=== PATIENT | female | born 1945 | race Caucasian/White ===

== ENCOUNTER 2024-07-23 12:04 | Inpatient (IN) ==
--- NOTE | 2024-07-23 12:17 | Emergency Department Note ---
Impression & Plan Lactic acidosis, Elevated troponin, Leukocytosis, Elevated transaminase level, Thrombocytopenia ED Provider Note NAME: DOROTHY AGUILAR AGE: 79 SEX: F : 1945 ARRIVES VIA: Ambulance INFORMANT: Patient, ED PROVIDER(S): Garrison Pennington MD CHIEF COMPLAINT: Weakness, fatigue, body aches MEDICAL DECISION MAKING: Patient presents due to concern for weakness fatigue tachycardia and bodyaches. IV was established and blood work was obtained. Patient does not complain of any significant symptoms at this time other than the weakness and fatigue. Patient was without chest pain or shortness of breath. Patient is undergoing chemotherapy treatment which also may be contributory. Patient was ordered IV fluids. White count of 13 with a hemoglobin 11.8. Thrombocytopenia at 43. The patient had reported she has had some occasional nosebleeds the last several days but not actively bleeding on exam. Kidney function is unremarkable. The patient does have slight anion gap and lower bicarb. Troponin is 16.8. Possible slight ST depressions in the lateral leads but no active chest pain or shortness of breath. Likely demand. I did consider PE but the patient does not complain of any chest pains or shortness of breath and there is no asymmetrical extra swelling in the lower extremities. BioFire negative. Lead with a negative bio fire patient was ordered Pro-Nnamdi cultures lactate and was ordered empiric IV Rocephin. Patient does report that she is prone to UTIs. Initial lactate of 3.3. Repeat after fluids is 1.1. Patient was feeling improved. I did speak the on-call hospitalist Dr. Ken and the patient was admitted to medicine service. Discussion w/ other healthcare providers: Dr. Ken inpatient medicine service Prior /Outside records reviewed: I reviewed part of a general surgery visit from April 27, [address] Madalyn Higgins. Patient did have a port insertion due to concerns for primary myxofibrosarcoma. 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 Differential diagnosis: Infection, dehydration, metabolic abnormality, hypo/hyperglycemia, electrolyte imbalance, anemia, UTI, pneumonia, thyroid dysfunction among others were considered. Diagnostics, as interpreted by me: ECG: Sinus tachycardia, rate 121, prolonged QTc, normal axis no obvious STEMI. Possible depressions in the lateral leads. Rate is higher. ST depressions are new from comparison from April 08, 2024. Cardiac monitoring: An order was placed for continuous cardiac monitoring. The monitor shows a rate of 114 with tachycardic and regular rhythm. Patient was placed on pulse oximetry Medical decision rules: None Imaging studies: I informally interpreted the patient's Chest x-ray does not show obvious pneumonia or pneumothorax port noted in left chest with formal report to follow. HPI: Patient presents due to concern for worsening weakness fatigue and lethargy. The patient states that this been an ongoing issue. Patient reports that he does have a history of sarcoma which unfortunate is not amenable to initial chemo treatment back in the fall but was really started on an adjunct medication which she received last Friday. The patient states that this week she has felt more weak and fatigued and has felt cold all the time. No reported fevers. Patient states that she has had decreased p.o. intake and does complain of some nausea. No vomiting. Patient reports that she has had some body aches like "she had the flu." Patient denies any known sick contacts or recent travel. The patient was told that she might have some of the symptoms when she receives the chemo. Patient denies any current cough no abdominal pain no chest pain or shortness of breath. Patient does have some mild chronic leg swelling which is not new. PAST MEDICAL HISTORY: See Below PAST SURGICAL HISTORY: See Below SOCIAL HISTORY: See Below HOME MEDICATIONS: See Below ALLERGIES: See Below VITALS: See Below PHYSICAL EXAMINATION: GENERAL: NAD, non-toxic. Wearing glasses. EYE EXAM: Normal conjunctiva. PERRL, no anisocoria and EOM's grossly intact w/o pain. OROPHARYNX: Moist mucus membranes, grossly normal dentition. NECK: Trachea midline, no stridor. Supple, no nuchal rigidity, no adenopathy, non-tender. No signs of meningismus. FROM of the neck with good chin to chest and neck extension. LUNGS: Clear to auscultation. Normal chest wall mechanics. HEART: Tachycardic and regular, no MRG. ABDOMEN: Abdomen soft, non-tender, no masses, no rebound or guarding. BACK: No CVA TTP. SKIN: No rashes and no bruising. UPPER EXTREMITIES: Upper extremities are grossly normal. LOWER EXTREMITIES: Grossly normal, trace pretibial edema without calf pain or erythema. NEURO EXAM: A&O x3, cranial nerves II-XII grossly intact, normal speech, moves all 4 extremities. Past Med/Surg History Problem List (Updated 07/24/24 @ 09:56 by Garrison Pennington MD) Thrombocytopenia (Acute) Elevated transaminase level (Acute) Lactic acidosis (Acute) Leukocytosis (Acute) Elevated troponin (Acute) SIRS (systemic inflammatory response syndrome) ILD (interstitial lung disease) Allergic rhinitis with postnasal drip Chronic cough Upper airway cough syndrome Multiple pulmonary nodules Lymphedema Primary myxofibrosarcoma (Chronic) Mass of left thigh Encounter for pre-operative examination Medical History Osteopenia Upper airway cough syndrome Primary myxofibrosarcoma dx spring 2022, left thigh; has mets to lung, one nodule in left lobe and 2 more nodules now in site of previously removed sarcomas; has also had 5 rounds of xrt (july-september 2022, total 5 weeks of treatments) Multiple pulmonary nodules CARLA nodule was bx and proven metastatic sarcoma Lymphedema ILD (interstitial lung disease) 'ILD/pulmonary fibrosis' per pulm note 01/22/24: 'increased reticular markings on the periphery of bilateral lower lobes with early honeycombing. No traction bronchiectasis', autoimmune workup ordered and was negative; per 03/15/24 note: 'Given that the patient's functional status is good, I do not think there is the need to start any antifibrotic's right now. Will keep a close eye on TLC as well as DLCO and if there is any significant decline in them then Ofev or Esbriet could be thought of. This was relayed to the patient and she is agreeable with the plan" Chronic cough Allergic rhinitis with postnasal drip History of uterine fibroid no sx needed Osteoarthritis Migraine hx, no pain more visual disturbance/flashes of light Hyperlipidemia Surgical History Port-A-Cath in place (04/12/24) Insertion Access Port to Left Subclavian with Fluoroscopy(Left) - Reyes Moeller DO History of surgery 12/04/22 and 04/17/23, [facility], myxofibrosarcoma removed in left thigh muscle; 2 new nodules have now formed in same the spot Hx of cataract extraction right/left History of cholecystectomy [place] teeth removed H/O eye surgery RT/LEFT CORNEA "SCRAPING" SURGERY Family History Sister Breast cancer Cancer Pancreatic Other No family history of adverse response to anesthesia Social History Smoking Status: Never smoker Second Hand Exposure: Yes (hx); Do You Dip or Chew Tobacco: No; Hx Alcohol Use: Yes Alcohol type: wine Alcohol Intake Frequency: Monthly or Less Hx Substance Use: No Preferred Language: Latvian Communication Ability: Effective Visual Impairment: Partially Limited Hearing Ability: Normal Human Resources Designate Required: No Beliefs That Will Affect Care: Worship marital status: Current Living Situation: Alone current occupational status: retired How many Children do You have: 1 Feels Safe at Home: Yes Safety Concerns: Feels Safe At This Time Diet: regular during the past year weight has: increased > 10 lbs Assistive Devices: Glasses Allergies Allergies Allergy/AdvReac Type Severity Reaction Status Date / Time No Known Allergies Allergy Unknown Verified 04/27/24 10:53 Home Meds Home Medications Medication Instructions Recorded Confirmed fenofibrate nanocrystallized 145 145 mg PO QPM 05/14/22 07/23/24 mg tablet multivitamin 1 tab PO QAM 05/14/22 07/23/24 ibuprofen 200 mg tablet (Advil) 200 mg PO Q6H PRN Pain 10/07/22 07/23/24 iron bisglycinate chelate 28 mg PO QAM 05/20/23 07/23/24 lactobacillus combination no.9 4 4,000 mmu cells PO QAM 05/20/23 07/23/24 billion cell capsule (Adult 50 Plus Probiotic) cholecalciferol (vitamin D3) 25 25 mcg PO QAM 11/20/23 07/23/24 mcg (1,000 unit) capsule cranberry concentrate-ascorbic 1 cap PO BID 03/16/24 07/23/24 acid 4,200 mg-20 mg capsule prochlorperazine maleate 10 mg 5 mg PO Q6H PRN Nausea And Vomiting 04/27/24 07/23/24 tablet acetaminophen 325 mg tablet 650 mg PO QID PRN Pain/Fever 07/23/24 07/23/24 dexamethasone 4 mg tablet 8 mg PO UD 07/23/24 07/23/24 olanzapine 2.5 mg tablet 2.5 mg PO UD 07/23/24 07/23/24 Results & Data (ED) Vital Signs Vital Signs - 24 hr 07/23/24 11:54 07/23/24 12:12 07/23/24 12:14 Temperature 36.6 C Temperature Source Oral Pulse Rate 122 H 132 H 128 H Pulse Rate from SpO2 Sensor 132 H Respiratory Rate 20 24 Blood Pressure 122/83 122/83 Blood Pressure Mean 96 96 Pulse Oximetry 97 97 Oxygen Delivery Method Sepsis Recent Fever Within 48 Hours No Sepsis New/Unexplained Change in Mental Status No Sepsis Action Taken by Nursing No Action Required 07/23/24 12:35 07/23/24 13:15 07/23/24 14:06 Temperature Temperature Source Pulse Rate 120 H 95 H Pulse Rate from SpO2 Sensor Respiratory Rate 22 18 Blood Pressure Blood Pressure Mean Pulse Oximetry Oxygen Delivery Method Room Air Sepsis Recent Fever Within 48 Hours Sepsis New/Unexplained Change in Mental Status Sepsis Action Taken by Nursing 07/23/24 15:03 07/23/24 16:06 07/23/24 16:10 Temperature Temperature Source Pulse Rate 98 H 107 H 102 H Pulse Rate from SpO2 Sensor Respiratory Rate 20 19 Blood Pressure Blood Pressure Mean Pulse Oximetry Oxygen Delivery Method Sepsis Recent Fever Within 48 Hours Sepsis New/Unexplained Change in Mental Status Sepsis Action Taken by Residential Medications Current Medication List: was personally reviewed by me Laboratory Data Attestation: I reviewed the patient's lab results. 07/24/24 05:22 07/24/24 05:22 Lab Results 07/23/24 07/23/24 07/23/24 Range/Units 12:31 13:10 14:28 WBC 13.31 H (4.8-10.8) K/ul RBC 3.82 L (4.20-5.40) M/uL Hgb 11.8 L (12.0-16.0) g/dl Hct 34.6 L (37.0-47.0) % MCV 90.6 (80.0-100.0) fL MCH 30.9 (25.0-34.0) pg MCHC 34.1 (32.0-36.0) g/dL RDW Std Deviation 48.9 H (36.4-46.3) fL RDW Coeff of Shavon 15.3 H (11.5-14.5) % Plt Count 43 L (130-400) K/uL MPV 11.4 (9.4-12.4) fL Absolute Nucleated RBC 0.20 H (0.00-0.12) K/uL Nucleated RBC % (auto) 1.5 % Neutrophils % (Manual) 49 % Lymphocytes % (Manual) 16 % Reactive Lymphs % (Man) 23 % Monocytes % (Manual) 7 % Basophils % (Manual) 2 % Metamyelocytes % (Man) 3 % Neutrophils # (Manual) 6.52 H (1.40-6.50) K/uL Total Absolute Neuts 6.52 H (1.4-6.5) K/uL Lymphocytes # (Manual) 2.13 (1.2-3.4) K/uL Reactive Lymphs # 3.06 K/uL Total Abs Lymphocytes 5.19 H (1.2-3.4) K/uL Monocytes # (Manual) 0.93 H (0.11-0.59) K/uL Basophils # (Manual) 0.27 H (0-0.2) K/uL Metamyelocytes # (Man) 0.40 H (0-0) K/uL Toxic Granulation 2+ Dohle Bodies 1+ PT 11.2 (9.0-12.0) Seconds INR 1.0 (0.9-1.1) Sodium 139 (136-145) mmol/L Potassium 3.3 L (3.5-5.1) mmol/L Chloride 105 (98-107) mmol/L Carbon Dioxide 19 L (21-32) mmol/L Anion Gap 15 H (3-11) BUN 19 (6-23) mg/dl Creatinine 1.04 (0.6-1.2) mg/dl Est Cr Clr Drug Dosing 41.9 ml/min eGFR 54.33 BUN/Creatinine Ratio 18.3 (10-20) Glucose 137 H (70-99(Fasting)) mg/dl Lactate 3.3 H* (0.4-2.0) mmol/L Calcium 9.6 (8.6-10.3) mg/dl Magnesium 1.8 (1.7-2.4) mg/dl Total Bilirubin 0.4 (0.2-1.0) mg/dl AST 90 H (13-39) U/L ALT 179 H (7-52) U/L Alkaline Phosphatase 110 H (34-104) U/L Total Creatine Kinase 30 (26-192) U/L Troponin I High Sens 60.8 H* (0-14) pg/ml Total Protein 7.2 (6.0-8.3) gm/dl Albumin 4.2 (3.4-5.0) gm/dl Globulin 3.0 (2.5-4.0) gm/dl Albumin/Globulin Ratio 1.4 (0.9-2) Procalcitonin 0.30 (0-0.5) ng/ml TSH 5.258 H (0.300-4.500) uIu/ml Free T4 1.17 (0.61-1.60) ng/dl Adenovirus (PCR) Not Detected (NotDetected) B. pertussis DNA (PCR) Not Detected (NotDetected) B.parapertussis DNA PCR Not Detected (NotDetected) C. pneumoniae DNA (PCR) Not Detected (NotDetected) Coronavirus OC43 (PCR) Not Detected (NotDetected) Coronavirus HKU1 (PCR) Not Detected (NotDetected) Coronavirus 229E (PCR) Not Detected (NotDetected) SARS-CoV-2 (PCR) Not Detected (NotDetected) Coronavirus NL63 (PCR) Not Detected (NotDetected) Human Metapneumovir PCR Not Detected (NotDetected) Influenza Type A (PCR) Not Detected (NotDetected) Influenza Type B (PCR) Not Detected (NotDetected) M. pneumoniae (PCR) Not Detected (NotDetected) Parainfluenza 1 (PCR) Not Detected (NotDetected) Parainfluenza 2 (PCR) Not Detected (NotDetected) Parainfluenza 3 (PCR) Not Detected (NotDetected) Parainfluenza 4 (PCR) Not Detected (NotDetected) RSV (PCR) Not Detected (NotDetected) Entero/Rhino (PCR) Not Detected (NotDetected) 07/23/24 07/23/24 Range/Units 14:58 16:16 WBC (4.8-10.8) K/ul RBC (4.20-5.40) M/uL Hgb (12.0-16.0) g/dl Hct (37.0-47.0) % MCV (80.0-100.0) fL MCH (25.0-34.0) pg MCHC (32.0-36.0) g/dL RDW Std Deviation (36.4-46.3) fL RDW Coeff of Shavon (11.5-14.5) % Plt Count (130-400) K/uL MPV (9.4-12.4) fL Absolute Nucleated RBC (0.00-0.12) K/uL Nucleated RBC % (auto) % Neutrophils % (Manual) % Lymphocytes % (Manual) % Reactive Lymphs % (Man) % Monocytes % (Manual) % Basophils % (Manual) % Metamyelocytes % (Man) % Neutrophils # (Manual) (1.40-6.50) K/uL Total Absolute Neuts (1.4-6.5) K/uL Lymphocytes # (Manual) (1.2-3.4) K/uL Reactive Lymphs # K/uL Total Abs Lymphocytes (1.2-3.4) K/uL Monocytes # (Manual) (0.11-0.59) K/uL Basophils # (Manual) (0-0.2) K/uL Metamyelocytes # (Man) (0-0) K/uL Toxic Granulation Dohle Bodies PT (9.0-12.0) Seconds INR (0.9-1.1) Sodium (136-145) mmol/L Potassium (3.5-5.1) mmol/L Chloride (98-107) mmol/L Carbon Dioxide (21-32) mmol/L Anion Gap (3-11) BUN (6-23) mg/dl Creatinine (0.6-1.2) mg/dl Est Cr Clr Drug Dosing ml/min eGFR BUN/Creatinine Ratio (10-20) Glucose (70-99(Fasting)) mg/dl Lactate 1.1 (0.4-2.0) mmol/L Calcium (8.6-10.3) mg/dl Magnesium (1.7-2.4) mg/dl Total Bilirubin (0.2-1.0) mg/dl AST (13-39) U/L ALT (7-52) U/L Alkaline Phosphatase (34-104) U/L Total Creatine Kinase (26-192) U/L Troponin I High Sens 81.6 H* D (0-14) pg/ml Total Protein (6.0-8.3) gm/dl Albumin (3.4-5.0) gm/dl Globulin (2.5-4.0) gm/dl Albumin/Globulin Ratio (0.9-2) Procalcitonin (0-0.5) ng/ml TSH (0.300-4.500) uIu/ml Free T4 (0.61-1.60) ng/dl Adenovirus (PCR) (NotDetected) B. pertussis DNA (PCR) (NotDetected) B.parapertussis DNA PCR (NotDetected) C. pneumoniae DNA (PCR) (NotDetected) Coronavirus OC43 (PCR) (NotDetected) Coronavirus HKU1 (PCR) (NotDetected) Coronavirus 229E (PCR) (NotDetected) SARS-CoV-2 (PCR) (NotDetected) Coronavirus NL63 (PCR) (NotDetected) Human Metapneumovir PCR (NotDetected) Influenza Type A (PCR) (NotDetected) Influenza Type B (PCR) (NotDetected) M. pneumoniae (PCR) (NotDetected) Parainfluenza 1 (PCR) (NotDetected) Parainfluenza 2 (PCR) (NotDetected) Parainfluenza 3 (PCR) (NotDetected) Parainfluenza 4 (PCR) (NotDetected) RSV (PCR) (NotDetected) Entero/Rhino (PCR) (NotDetected) Administered Medications Fenofibrate (Fenofibrate Nanocrystallized 145 Mg Tablet) 145 mg PO QPM NITO Stop: 08/22/24 20:59 Last Admin: 07/23/24 22:06 Dose: 145 mg Documented By: STEFANY Multivitamins (Multivitamin Tab) 1 tab PO QAM NITO Stop: 08/23/24 08:59 Last Admin: 07/24/24 09:25 Dose: 1 tab Documented By: KATYO Discontinued Medications Sodium Chloride (Nss) 1,000 mls @ 999 mls/hr IV .Q1H1M ONE Stop: 07/23/24 13:35 Last Infusion: 07/23/24 18:52 Dose: Infused Documented By: Admin: 07/23/24 13:09 Dose: 999 mls/hr Documented By: JOSR Ceftriaxone Sodium (Rocephin) 2,000 mg in 50 mls @ 100 mls/hr IV NOW STA Stop: 07/23/24 14:43 Last Infusion: 07/23/24 18:52 Dose: Infused Documented By: Admin: 07/23/24 15:06 Dose: 100 mls/hr Documented By: ARS Sodium Chloride (Nss) 1,000 mls @ 999 mls/hr IV .Q1H1M ONE Stop: 07/23/24 15:14 Last Infusion: 07/23/24 18:52 Dose: Infused Documented By: Admin: 07/23/24 14:27 Dose: 999 mls/hr Documented By: JOSR Pantoprazole Sodium (Protonix) 40 mg in 10 mls @ 5 mls/min IV NOW ONE Stop: 07/23/24 16:05 Last Admin: 07/23/24 18:33 Dose: 5 mls/min Documented By: JOSR Lactated Ringer's (Lr) 1,000 mls @ 150 mls/hr IV .Q6H40M NITO Stop: 07/24/24 09:49 Last Admin: 07/24/24 03:36 Dose: 150 mls/hr Documented By: Infusion: 07/24/24 03:36 Dose: Infused Documented By: Admin: 07/23/24 20:31 Dose: 150 mls/hr Documented By: STEFANY Ondansetron HCl (Ondansetron Inj 2 Mg/Ml 2 Ml Vial) 4 mg IV NOW STA Stop: 07/23/24 12:36 Last Admin: 07/23/24 13:08 Dose: 4 mg Documented By: JOSR Pantoprazole Sodium (Pantoprazole 40 Mg/10 Ml Ivp) Confirm Administered Dose 40 mg IV .STK-MED ONE Stop: 07/23/24 18:29 Last Admin: 07/23/24 18:33 Dose: Not Given Documented By: JOSR Imaging Data Radiologist's Impression: Chest X-Ray 07/23/24 12:35 XR chest 1V portable CLINICAL HISTORY: weakness COMPARISON STUDY: Chest radiograph April 12, 2024. Chest CT June 30, 2024. FINDINGS: A left subclavian [id number]-[id number] is in place. Lung volumes are normal. Lungs are clear. There is no pneumothorax or pleural effusion. Cardiac size is normal. Mediastinal contours are normal. There is no evidence for pulmonary edema. IMPRESSION: No acute cardiopulmonary findings. No change in appearance of the chest. ACT 112: Negative or not required by law. Electronically signed by: Jeramie Sage M.D. 07/23/2024 1:38 PM Discharge Plan Visit Data Chief Complaint: Weakness Stated Complaint: WEAKNESS ED Provider: Garrison Pennington Discharge Problem: Lactic acidosis, Elevated troponin, Leukocytosis, Elevated transaminase level, Thrombocytopenia Patient Disposition: Admitted As Inpatient Discharge Instructions Interventions: ED Discharge Assessment Last Done: 07/23/24 18:56 Discharge Problem: Leukocytosis Qualifiers: Leukocytosis type: unspecified Qualified Code(s): D72.829 - Elevated white blood cell count, unspecified
[2024-07-23] MEDS: ONDANSETRON INJ 2 MG/ML 2 ML VIAL IV STA (13:08)
[2024-07-23] MEDS: SODIUM CHLORIDE 0.9% 1,000 ML IV ONE ×2 (13:09→14:27)
[2024-07-23 13:13] LABS: Albumin Globulin Ratio 1.4 (0.9-2); Albumin Level 4.2 gm/dl (3.4-5.0); BUN Creatinine Ratio 18.3 (10-20); Bilirubin,Total 0.4 mg/dl (0.2-1.0); Calcium 9.6 mg/dl (8.6-10.3); Creatinine Clr Calc Pharmacy 41.9 ml/min; Magnesium 1.8 mg/dl (1.7-2.4); Potassium 3.3 mmol/L (3.5-5.1); Total Protein 7.2 gm/dl (6.0-8.3)
[2024-07-23 13:17] LABS: Prothrombin Time 11.2 Seconds (9.0-12.0)
[2024-07-23 13:24] LABS: Troponin I High Sensitivity 60.8 pg/ml (0-14)
[2024-07-23 13:25] LABS: Hematocrit (blood only) 34.6 % (37.0-47.0); Hemoglobin 11.8 g/dl (12.0-16.0); Mean Corpuscular Hemoglobin 30.9 pg (25.0-34.0); Mean Corpuscular Hgb Conc 34.1 g/dL (32.0-36.0); Mean Corpuscular Volume 90.6 fL (80.0-100.0); Mean Platelet Volume 11.4 fL (9.4-12.4); Nucleated RBC % (auto) 1.5 %; Platelet Count 43 K/uL (130-400); RDW Coefficient of Variation 15.3 % (11.5-14.5); RDW Standard Deviation 48.9 fL (36.4-46.3); Red Blood Count 3.82 M/uL (4.20-5.40); White Blood Count 13.31 K/ul (4.8-10.8)
[2024-07-23 13:28] LABS: Thyroid Stimulating Hormone 5.258 uIu/ml (0.300-4.500)
--- NOTE | 2024-07-23 13:39 | XRay Report ---
XR chest 1V portable CLINICAL HISTORY: weakness COMPARISON STUDY: Chest radiograph April 12, 2024. Chest CT June 30, 2024. FINDINGS: A left subclavian Pvuwas-b-Xjam is in place. Lung volumes are normal. Lungs are clear. Ther e is no pneumothorax or pleural effusion. Cardiac size is normal. Mediastinal contours are normal. Th ere is no evidence for pulmonary edema. IMPRESSION: No acute cardiopulmonary findings. No change in appearance of the chest. ACT 112: Negative or not required by law. Electronically signed by: Jeramie Saeg M.D. 07/23/2024 1:38 PM
[2024-07-23 14:01] LABS: T4 Free Thyroxine 1.17 ng/dl (0.61-1.60)
[2024-07-23 14:04] LABS: Adenovirus PCR Not Detected (NotDetected); Bordetella parapertussis PCR Not Detected (NotDetected); Bordetella pertussis PCR Not Detected (NotDetected); Chlamydia pneumoniae PCR Not Detected (NotDetected); Coronavirus 229E PCR Not Detected (NotDetected); Coronavirus CoV-2 (COVID19)PCR Not Detected (NotDetected); Coronavirus HKU1 PCR Not Detected (NotDetected); Coronavirus NL63 PCR Not Detected (NotDetected); Coronavirus OC43PCR Not Detected (NotDetected); Human Metapneumovirus PCR Not Detected (NotDetected); Influenza A PCR Not Detected (NotDetected); Influenza B PCR Not Detected (NotDetected); Mycoplasma pneumoniae PCR Not Detected (NotDetected); Parainfluenza Virus 1 PCR Not Detected (NotDetected); Parainfluenza Virus 2 PCR Not Detected (NotDetected); Parainfluenza Virus 3 PCR Not Detected (NotDetected); Parainfluenza Virus 4 PCR Not Detected (NotDetected); Respiratory Syncytial VirusPCR Not Detected (NotDetected); Rhinovirus/Enterovirus PCR Not Detected (NotDetected)
[2024-07-23 14:18] LABS: ALC (manual) 5.19 K/uL (1.2-3.4); ANC (manual) 6.52 K/uL (1.4-6.5); Basophils # (manual) 0.27 K/uL (0-0.2); Basophils % (manual) 2 %; Dohle Bodies 1+; Lymphocytes # (manual) 2.13 K/uL (1.2-3.4); Lymphocytes % (manual) 16 %; Metamyelocytes % (manual) 3 %; Monocytes # (manual) 0.93 K/uL (0.11-0.59); Monocytes % (manual) 7 %; Neutrophils # (manual) 6.52 K/uL (1.40-6.50); Neutrophils % (manual) 49 %; Reactive Lymphocytes # (manual) 3.06 K/uL; Reactive Lymphocytes % (manual) 23 %; Toxic Granulation 2+
[2024-07-23] MEDS: cefTRIAXone SODIUM 2,000 MG/50 ML BAG IV STA (15:06)
--- OUTSIDE RECORDS SUMMARY | 2024-07-23 16:03 | External Medical Summary | Continuity of Care Document ---
Author Name Unknown Organization [facility] Address [address] [place] [id number] Care Team Providers Care Infant Lead Teacher Name Role Phone Criselda Guzman Primary Care Physician [phone] Encounter [facility] [id number] Date(s): 07/14/24 - 07/14/[address] [phone] Discharge Disposition: Home or Self Care Attending Physician: MD Dc Edward J Referring Physician: MD Dc Edward J Encounter Type: Outpatient Hospital Allergies, Adverse Reactions, Alerts No Known Allergies Medications Claritin Start: 05/10/24 2:36:00 PM EST, 10 mg =, PO, Daily Start Date: 05/10/24 Status: Ordered Repeat number: 1 cranberry oral capsule Start: 03/04/24 9:05:00 AM EDT, 1 capsule, PO, bid Start Date: 03/04/24 Status: Ordered Repeat number: 1 Culturee Digestive Health Start: 04/10/23 12:29:00 PM EST, 1 tab, PO, Daily Start Date: 04/10/23 Status: Ordered Repeat number: 1 fenofibrate 145 mg oral tablet Start: 08/26/22 2:38:00 PM EDT, 1 tab, PO, Daily Start Date: 08/26/22 Status: Ordered Repeat number: 1 iron gluconate Start: 12/19/22 12:45:00 PM EDT, 28 mg =, PO, Daily Start Date: 12/19/22 Status: Ordered Repeat number: 1 multivitamin Start: 04/10/23 12:29:00 PM EST, 1 tab, PO, Daily Start Date: 04/10/23 Status: Ordered Repeat number: 1 prochlorperazine Start: 05/10/24 2:36:00 PM EST, 5 mg =, PO, bid Start Date: 05/10/24 Status: Ordered Repeat number: 1 Tylenol Start: 04/10/23 12:27:00 PM EST, 650 mg =, PO, qid, prn Start Date: 04/10/23 Status: Ordered Repeat number: 1 Vitamin D3 Start: 08/04/23 9:55:00 AM EST, 250 mcg =, PO, Daily Start Date: 08/04/23 Status: Ordered Repeat number: 1 Problem List Condition Confirmation Course Effective Dates Status H ealth Status Informant High cholesterol Confirmed Active 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 OO MR Lower Extremity Consult EXAMINATION: MRI of the left lower extremity performed at [facility] 06/23/2024 CLINICAL HISTORY: C49.9: Malignant neoplasm of connective and soft tissue,; Thigh 2022 sarcoma with recurrence excision 2022; ?new recurrence?? Additional info: Myxofibrosarcoma status post neoadjuvant radiation and resection 2022, recurrence in April 2023 status post reexcision. Now with bilateral biopsy proven recurrence within the leftthigh and lung. COMPARISON: PET/CT 05/10/2024, 02/09/2024 MRI 07/28/2023, 03/13/2023, 07/30/2022 TECHNIQUE: Multiplanar multisequence MRI of the left lower extremity with and without contrast. FINDINGS: Treatment location: Left vastus lateralis. Anticipated post-treatment findings: New, recurrent, or residual disease: Enhancing intrinsically T2 hyperintense lesions within the left lateral thigh abutting the vastus intermedialis, rectus femoris, and vastus lateralis. Masses measure 3.6 x 3.1 cm and 2.7 x 2.6 cm (previously measuring 3.6 x 2.9 cm and 2.5 x 2.5 cm-PET/CT 05/10/2024). No new mass. Adjacent chronic seroma with surrounding enhancing granulation tissue about the lateral aspect of the thigh. No lymphadenopathy. Other: Visualized pelvis is unremarkable. IMPRESSION: 1. Stable size of left lateral thigh masses from PET CT 05/10/2024, increased in size from previous outside MRI examination of January 26, 2024. 2. No new mass/lesion. [place] Act 112: This study does not meet the requirements of [place] Act 112. Dr. Guicho Bergman is the dictating resident. Finalized reports status indicates that the attendinghas reviewed the images and report, and agrees with the interpretation. Preliminary report status should be regarded as NOT interpreted by the attending radiologist. Workstation ID: [id number] Final Dictated by:DO Bergman Matthew Dictated DT/TM:07/15/2024 2:20 Resident:DO Bergman Matthew Signed by:MD Hdez Timothy J Signed (Electronic Signature):07/15/2024 2:19 p Social History Social History Type Response Smoking Status Never smoked cigaret kofi Sex Female Sex Representation Female (finding) Patient Care team information Care Team Personnel Name: DO Guzman Chastity L Position: Referring Member Role: Primary Care Provider Address: [facility] [address] [place] [address] [place] Telecom: [phone] Name: MD Salvador, Lindsey Fischer Position: Physician - Surgery Oncology Member Role: Lifetime Relationship Address: [address] [place] [address] Telecom: [phone] Care Team Related Persons Name: MANUEL DEE Insurance Providers Guarantor name: DOROTHY Conor LAUREN Health Plan Information #: 1 Payer: MEDICARE Member Number: [id number] Policy Number: NA Group Number: NA Health Plan Information #: 2 Payer: [facility] [employer] Member Number: [id number] Policy Number: NA Group Number: [id number]
--- OUTSIDE RECORDS SUMMARY | 2024-07-23 16:04 | External Medical Summary | Continuity of Care Document ---
Author Name Unknown Organization [facility] Address [address] [place] [address] TREV OSORIO [id number] Care Team Providers Care Director Property Name Role Phone Crieslda Guzman Primary Care Physician [phone] Encounter [facility] [id number] Date(s): 07/12/24 - 07/12/24 [facility] [id number], [place] [address]- [phone] Encounter Diagnosis Soft tissue sarcoma(Discharge Diagnosis) - 07/12/24 Discharge Disposition: Home or Self Care Attending Physician: MD Lenz Monali K Referring Physician: DO Guzman Chastity L Encounter Type: [facility] Allergies, Adverse Reactions, Alerts No Known Allergies [...] Date: 08/04/23 Status: Ordered Repeat number: 1 Mental Status 07/12/24 Barriers to Learning one year Vision imp airment, Other: Glasses Mandatory Health Literacy Documentation Yes Health Literacy Communication Barriers N ever Primary Language Luxembourgish Problem List Condition Confirmation Course Effective Dates Status H ealth Status Informant High cholesterol Confirmed Active 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 Diagnosis Diagnosis Type Effective Dates Health Status Cl inical Service Informant Soft tissue sarcoma Discharge Diagnosis 07/12/24 Non-Specified Procedures Procedure Date Related Diagnosis Body Site Status Sarcoma- Left thigh 12/04/22 Compl eted Mammogram 04/17/22 Completed Cholecystectomy 2007 Completed Vital Signs Most recent to oldest [Reference Range]: 1 Height 153 cm (07/12/24 9:21 AM) Patient Weight 69.8 kg (07/12/24 9:21 AM) Body Mass Index 29.82 kg/m2 (07/12/24 9:21 AM) Temperature [36.5-37.9 DegC] 37.1 DegC (07/12/24 9:21 AM) Heart Rate 116 bpm 1 (07/12/24 9:21 AM) Respiratory Rate 18 br/min (07/12/24 9:21 AM) Blood Pressure 128/74mmHg (07/12/24 9:21 AM) Mean Blood Pressure 90 mmHg (07/12/24 9:21 AM) Cuff Pulse Pressure 54 mmHg (07/12/24 9:21 AM) BP Location # 1 Left Arm (07/12/24 9:21 AM) 1Result Comment: provider notified Social History Social History Type Response Smoking Status Never smoked cigaret kofi Sex Female Sex Representation Female (finding) Patient Care team information Care Team Personnel Name: DO Guzman Chastity L Position: Referring Member Role: Primary Care Provider Address: [facility] [address] [place] [address] Telecom: [phone] Name: MD Salvador, Lindsey Fischer Position: Physician - Surgery Oncology Member Role: Lifetime Relationship Address: [address] [place] [address] Telecom: [phone] Care Team Related Persons Name: MANUEL DEE Insurance Providers Guarantor name: DOROTHY AGUILAR Health Plan Information #: 2 Payer: [facility] [employer] Member Number: [id number] Policy Number: NA Group Number: [id number] Health Plan Information #: 1 Payer: MEDICARE Member Number: [id number] Policy Number: NA Group Number: [id number]
--- NOTE | 2024-07-23 16:08 | History & Physical Report ---
Date of Service July 23, 2024 Assessment & Plan (1) SIRS (systemic inflammatory response syndrome): Plan: No source of infection from history however UA pending. Ceftriaxone IV given in the ER however more likely explanation is that this is due to dehydration and her chemotherapy. Follow-up blood cultures and urinalysis (2) Elevated troponin: Plan: No chest pain or shortness of breath to suggest acute coronary syndrome Repeat x1 further troponin in the morning or sooner if she develops chest pain or shortness of breath This is consistent with demand ischemia (3) Leukocytosis: Plan: Suspected secondary to Neulasta, less likely infection related (4) Elevated transaminase level: Plan: Creatinine kinase normal Suspect this is chemotherapy related versus dehydration Repeat levels with a.m. labs Stop fenofibrate if does not resolve to normal (5) Thrombocytopenia: Plan: Suspected secondary to chemotherapy Continue to monitor with a.m. labs (6) Lactic acidosis: Plan: Resolved with IV fluids Plan VTE prophylaxis - SCDs, no chemical prophylaxis due to thrombocytopenia Diet - regular Disposition - admit to med/surg Admission and Anticipated Discharge Date Admission Date: July 23, 2024 History of Present Illness Chief Complaint: Generalized weakness Primary Care Provider: Criselda Guzman Alessia Garcia is an 79-year-old female who presents to the ER with progressive weakness since beginning chemotherapy for metastatic sarcoma. She reports starting a new round of chemotherapy last Friday. On Friday she had bodyaches, bone pain, fatigue, low appetite. She had epistaxis for 4 days which is now resolved. She began progressively weaker and weaker with her mouth very dry. [facility] and recommended she came to the ER for her friend called for an ambulance as she was so weak she was unable to get up. She denies any chest pain, shortness of breath, palpitations, syncope, abdominal pain, respiratory or urinary symptoms. She has had constant diarrhea twice a day for over a year. She has had occasional "heartburn" three times although this is not an acid taste in her mouth but a sudden epigastric pain which is relieved quickly with antinausea medication. She does not take any Tums, PPI or H2 luke. She denies any alcohol use and no history of liver problems. Allergies Allergy/AdvReac Type Severity Reaction Status Date / Time No Known Allergies Allergy Unknown Verified 04/27/24 10:53 Home Medications Medication Instructions Recorded Confirmed Type fenofibrate nanocrystallized 145 145 mg PO QPM 05/14/22 07/23/24 History mg tablet multivitamin 1 tab PO QAM 05/14/22 07/23/24 History ibuprofen 200 mg tablet (Advil) 200 mg PO Q6H PRN Pain 10/07/22 07/23/24 History iron bisglycinate chelate 28 mg PO QAM 05/20/23 07/23/24 History lactobacillus combination no.9 4 4,000 mmu cells PO QAM 05/20/23 07/23/24 H istory billion cell capsule (Adult 50 Plus Probiotic) cholecalciferol (vitamin D3) 25 25 mcg PO QAM 11/20/23 07/23/24 History mcg (1,000 unit) capsule cranberry concentrate-ascorbic 1 cap PO BID 03/16/24 07/23/24 History acid 4,200 mg-20 mg capsule prochlorperazine maleate 10 mg 5 mg PO Q6H PRN Nausea And Vomiting 04/27/24 07/23/24 History tablet acetaminophen 325 mg tablet 650 mg PO QID PRN Pain/Fever 07/23/24 07/23/24 History dexamethasone 4 mg tablet 8 mg PO UD 07/23/24 07/23/24 History olanzapine 2.5 mg tablet 2.5 mg PO UD 07/23/24 07/23/24 History Past Med/Surg History Problem List (Updated 07/24/24 @ 01:27 by Stephane Ken MD) Thrombocytopenia Elevated transaminase level Lactic acidosis Leukocytosis Elevated troponin SIRS (systemic inflammatory response syndrome) ILD (interstitial lung disease) Allergic rhinitis with postnasal drip Chronic cough Upper airway cough syndrome Multiple pulmonary nodules Lymphedema Primary myxofibrosarcoma (Chronic) Mass of left thigh Encounter for pre-operative examination Medical History (Updated 07/24/24 @ 01:27 by Stephane Ken MD) Osteopenia Upper airway cough syndrome Primary myxofibrosarcoma dx spring 2022, left thigh; has mets to lung, one nodule in left lobe and 2 more nodules now in site of previously removed sarcomas; has also had 5 rounds of xrt (july-september 2022, total 5 weeks of treatments) Multiple pulmonary nodules CARLA nodule was bx and proven metastatic sarcoma Lymphedema ILD (interstitial lung disease) 'ILD/pulmonary fibrosis' per pulm note 01/22/24: 'increased reticular markings on the periphery of bilateral lower lobes with early honeycombing. No traction bronchiectasis', autoimmune workup ordered and was negative; per 03/15/24 note: 'Given that the patient's functional status is good, I do not think there is the need to start any antifibrotic's right now. Will keep a close eye on TLC as well as DLCO and if there is any significant decline in them then Ofev or Esbriet could be thought of. This was relayed to the patient and she is agreeable with the plan" Chronic cough Allergic rhinitis with postnasal drip History of uterine fibroid no sx needed Osteoarthritis Migraine hx, no pain more visual disturbance/flashes of light Hyperlipidemia Surgical History (Updated 04/13/24 @ 12:57 by Annie Roberto RN) Port-A-Cath in place (04/12/24) Insertion Access Port to Left Subclavian with Fluoroscopy(Left) - Reyes Moeller, History of surgery 12/04/22 and 04/17/23, [facility], myxofibrosarcoma removed in left thigh muscle; 2 new nodules have now formed in same the spot Hx of cataract extraction right/left History of cholecystectomy [place] teeth removed H/O eye surgery RT/LEFT CORNEA "SCRAPING" SURGERY Family History Sister Breast cancer Cancer Pancreatic Other No family history of adverse response to anesthesia Social History Smoking Status: Unknown if ever smoked Second Hand Exposure: Yes (hx); Do You Dip or Chew Tobacco: No; Hx Alcohol Use: Yes Alcohol type: wine Alcohol Intake Frequency: Monthly or Less Hx Substance Use: No Preferred Language: Hebrew Communication Ability: Effective Visual Impairment: Partially Limited Hearing Ability: Normal 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 Beliefs That Will Affect Care: None marital status: Current Living Situation: Family current occupational status: retired How many Children do You have: 1 Feels Safe at Home: Yes Diet: regular during the past year weight has: increased > 10 lbs Assistive Devices: Glasses Review of Systems Review of Systems: All systems reviewed & are unremarkable except as noted in HPI & below Physical Exam Constitutional: WD/WN, vitals as above Respiratory: normal respiratory effort, lungs clear to auscultation Cardiovascular: Rate/Rhythm: regular rhythm and + tachycardic Heart Sounds: no murmur Extremities: normal capillary refill; no calf tenderness and no pedal edema Gastrointestinal (Abdomen): normal bowel sounds, soft, nontender, no hepatosplenomegaly Results & Data Results & Data Vital Signs (Past 12 Hours) Vital Signs Temp Pulse Resp BP Pulse Ox O2 Del Method 07/23/24 12:35 Room Air 07/23/24 12:14 128 H 07/23/24 11:54 36.6 C 122 H 20 122/83 97 Laboratory Results Abnormal lab results 07/23/24 07/23/24 07/23/24 Range/Units 12:31 14:28 14:58 WBC 13.31 H (4.8-10.8) K/ul RBC 3.82 L (4.20-5.40) M/uL Hgb 11.8 L (12.0-16.0) g/dl Hct 34.6 L (37.0-47.0) % RDW Std Deviation 48.9 H (36.4-46.3) fL RDW Coeff of Shavon 15.3 H (11.5-14.5) % Plt Count 43 L (130-400) K/uL Absolute Nucleated RBC 0.20 H (0.00-0.12) K/uL Neutrophils # (Manual) 6.52 H (1.40-6.50) K/uL Total Absolute Neuts 6.52 H (1.4-6.5) K/uL Total Abs Lymphocytes 5.19 H (1.2-3.4) K/uL Monocytes # (Manual) 0.93 H (0.11-0.59) K/uL Basophils # (Manual) 0.27 H (0-0.2) K/uL Metamyelocytes # (Man) 0.40 H (0-0) K/uL Potassium 3.3 L (3.5-5.1) mmol/L Carbon Dioxide 19 L (21-32) mmol/L Anion Gap 15 H (3-11) Glucose 137 H (70-99(Fasting)) mg/dl Lactate 3.3 H* (0.4-2.0) mmol/L AST 90 H (13-39) U/L ALT 179 H (7-52) U/L Alkaline Phosphatase 110 H (34-104) U/L Troponin I High Sens 60.8 H* 81.6 H* D (0-14) pg/ml TSH 5.258 H (0.300-4.500) uIu/ml Diagnostic Findings XR chest 1V portable CLINICAL HISTORY: weakness COMPARISON STUDY: Chest radiograph April 12, 2024. Chest CT June 30, 2024. FINDINGS: A left subclavian [id number]-t-Dewf is in place. Lung volumes are normal. Lungs are clear. There is no pneumothorax or pleural effusion. Cardiac size is normal. Mediastinal contours are normal. There is no evidence for pulmonary edema. IMPRESSION: No acute cardiopulmonary findings. No change in appearance of the chest. Medications Administered ER medications given: Normal saline 1 L bolus Ondansetron 4 mg IV Ceftriaxone 2000 mg IV Normal saline 1 L bolus ECG Rate (beats per minute): 121 Rhythm: sinus tachycardia Findings: + nonspecific-ST abn Comparison ECG Date: from (April 08, 2024) Change: the following changes noted (T wave flattening now evident in lateral leads) Code Status & VTE Plan Code Status Full VTE Prophylaxis Plan VTE Prophylaxis will be ordered: Yes PG Care Time/CCT Total # of Minutes Spent Total Time Spent with Patient: Total time spent is greater than 50% in coordination of care (as documented) at patient's floor/unit and/or counseling patient: Coding Level of Care Code 51870 INT INP/OBS CARE 3/75MIN Diagnoses SIRS (systemic inflammatory response syndrome) R65.10 Elevated troponin R79.89 Leukocytosis D72.829 Elevated transaminase level R74.01 Thrombocytopenia D69.6 Lactic acidosis E87.20
--- NOTE | 2024-07-23 18:08 | Electrocardiogram Report ---
Test Reason : Blood Pressure : */* mmHG Vent. Rate : 121 BPM Atrial Rate : 121 BPM P-R Int : 132 ms QRS Dur : 74 ms QT Int : 388 ms P-R-T Axes : 10 -16 91 degrees QTcB Int : 550 ms Sinus tachycardia Nonspecific ST and T wave abnormality Abnormal ECG When compared with ECG of 08-Apr-2024 11:00, T wave inversion now evident in Lateral leads Confirmed by Jose A Duran ([id number]) on 07/23/2024 6:08:26 PM Referred By: REFERRED SELF Confirmed By: Jose A Duran
[2024-07-23] MEDS: PANTOprazole 40 MG/10 ML SYR IV ONE (18:33)
[2024-07-23] MEDS: PANTOprazole 40 MG/10 ML IVP IV ONE (18:33)
[2024-07-23] MEDS ORDERED: ACETAMINOPHEN 325 MG TAB PO PRN (18:55)
[2024-07-23] MEDS ORDERED: PROCHLORPERAZINE MALEATE 5 MG TAB PO PRN (18:55)
[2024-07-23] MEDS ORDERED: ONDANSETRON INJ 2 MG/ML 2 ML VIAL IV PRN (18:55)
[2024-07-23] MEDS: LACTATED RINGER'S 1,000 ML IV SCH (20:31)
[2024-07-23] MEDS: FENOFIBRATE NANOCRYSTALLIZED 145 MG TABLET PO SCH (22:06)
[2024-07-24 05:47] LABS: Appearance Urine Clear (Clear); Bilirubin Urine Negative (Negative); Blood Urine Negative (Negative); Color Urine Yellow; Glucose Urine UA Negative (Negative); Ketones Urine Negative (Negative); Leukocyte Esterase Urine Negative (Negative); Nitrite Urine Negative (Negative); Protein Urine Negative (Negative); Specific Gravity Urine 1.007 (1.000-1.030); Urobilinogen Urine Negative (Negative); pH Urine 5.5 (4.5-7.5)
[2024-07-24 06:27] LABS: BUN Creatinine Ratio 10.9 (10-20); Bilirubin Direct 0.1 mg/dl (0-0.2); Bilirubin,Total 0.3 mg/dl (0.2-1.0); Calcium 7.7 mg/dl (8.6-10.3); Creatinine Clr Calc Pharmacy 47.3 ml/min; Potassium 3.3 mmol/L (3.5-5.1); Total Protein 5.1 gm/dl (6.0-8.3); Troponin I High Sensitivity 146.2 pg/ml (0-14)
[2024-07-24 07:21] LABS: Hematocrit (blood only) 26.4 % (37.0-47.0); Hemoglobin 8.8 g/dl (12.0-16.0); Mean Corpuscular Hemoglobin 30.8 pg (25.0-34.0); Mean Corpuscular Hgb Conc 33.3 g/dL (32.0-36.0); Mean Corpuscular Volume 92.3 fL (80.0-100.0); Mean Platelet Volume 10.8 fL (9.4-12.4); Nucleated RBC # (auto) 0.19 K/uL (0.00-0.12); Nucleated RBC % (auto) 1.2 %; Platelet Count 46 K/uL (130-400); RDW Coefficient of Variation 15.8 % (11.5-14.5); Red Blood Count 2.86 M/uL (4.20-5.40); White Blood Count 15.86 K/ul (4.8-10.8)
[2024-07-24 07:27] LABS: Basophils # (auto) 0.12 K/uL (0.00-0.20); Basophils % (auto) 0.8 %; Eosinophils # (auto) 0.04 K/uL (0.00-0.50); Eosinophils % (auto) 0.3 %; Immature Granulocytes # (auto) 1.52 K/uL (0.01-0.20); Immature Granulocytes % (auto) 9.6 %; Lymphocytes # (auto) 2.69 K/uL (1.20-3.40); Monocytes # (auto) 2.19 K/uL (0.11-0.59); Monocytes % (auto) 13.8 %; Neutrophils % (auto) 58.5 %; Polychromasia 1+; Toxic Granulation 3+
[2024-07-24] MEDS: MULTIVITAMIN TAB PO SCH (09:25)
--- NOTE | 2024-07-24 11:38 | Hospitalist Progress Note ---
Date of Service July 24, 2024 Assessment & Plan (1) SIRS (systemic inflammatory response syndrome): Plan: -no source of infection -emperic tx with rocephin -IVF -symptoms resolving (2) Elevated troponin: Plan: No chest pain or shortness of breath to suggest acute coronary syndrome Repeat x1 further troponin in the morning or sooner if she develops chest pain or shortness of breath This is consistent with demand ischemia Follow up CPK (3) Leukocytosis: Plan: Suspected secondary to Neulasta, less likely infection related (4) Elevated transaminase level: Plan: Creatinine kinase normal Suspect this is chemotherapy related versus dehydration Repeat levels with a.m. labs show improvement (5) Thrombocytopenia: Plan: Suspected secondary to chemotherapy Continue to monitor with a.m. labs (6) Lactic acidosis: Plan: Resolved with IV fluids Plan VTE prophylaxis - SCDs, no chemical prophylaxis due to thrombocytopenia Diet - regular Disposition - Plan to d/c in am 07/25/24 Admission and Anticipated Discharge Date Admission Date: July 23, 2024 Subjective Pt states she feels much better this am. Review of Systems Review of Systems: CONST: Negative for fever, body aches and chills. HENT: Negative for neck pain/stiffness, headache, congestion, sore throat, swelling. EYES: Negative for discharge/pain or vision changes. RESP: Negative for cough/hemoptysis and shortness of breath. CV: Negative chest pain, difficulty breathing, palpitations. ABD: Negative pain, nausea, vomiting. : Negative increase frequency, dysuria, blood in urine or stool. MUSC: Negative for muscle aches, edema. SKIN: Negative rash, lesions/sores. NEURO: Negative headache, dizziness, weakness. Physical Exam Physical Exam: GENERAL APPEARANCE NAD, activity normal for age, well developed/ well nourished, no cyanosis, pallor, or diaphoresis. EYES lids/conjunctiva normal. EARS/NOSE/THROAT Mucous membranes moist, nares normal, lips/teeth normal uvula midline without oral pharyngeal erythema, exudate or swelling TMs normal bilaterally. No lymphangitis/lymphedema. HEAD/NECK normocephalic atraumatic, no facial trauma, neck is supple. RESPIRATORY respiratory effort normal, speaks in full sentences, no tripod position, no accessory muscle use. Lungs clear to auscultation without rhonchi, wheezes, rales CARDIAC Regular rate and rhythm, no edema. ABDOMINAL Soft, ND/NT. No evidence of fluid wave. No pulsatile masses on exam, rebound tenderness, Lanier sign or pain over Mcburney's point. MUSCLES/EXTREMITIES No abnormal range of motion, no swelling. SKIN Warm, pink and dry. No rashes, dermatoses, petechiae or lesions. NEUROLOGICAL Speech is clear and appropriate. Normal level of consciousness. Gait and coordination are normal. 5/5 strength in all extremities. PSYCH Normal mood and affect. Judgement/competence is appropriate Results & Data Results & Data Vital Signs (Past 12 Hours) Vital Signs Temp Pulse Pulse Resp BP BP Pulse Ox 07/24/24 07:57 81 07/24/24 03:33 36.7 C 93 H 20 118/57 L 95 07/24/24 02:40 36.6 C 88 18 114/65 94 07/24/24 02:00 88 18 114/65 94 07/24/24 01:00 97 H 21 117/62 94 07/24/24 00:00 97 H 16 120/64 95 07/23/24 23:36 93 H 19 117/61 94 O2 Del Method 07/24/24 07:57 07/24/24 03:33 Room Air 07/24/24 02:40 Room Air 07/24/24 02:00 07/24/24 01:00 07/24/24 00:00 07/23/24 23:36 PG Care Time/CCT Total # of Minutes Spent Total Time Spent with Patient: Total time spent is greater than 50% in coordination of care (as documented) at patient's floor/unit and/or counseling patient: Coding Level of Care Code 51560 SUB INP/OBS CARE 2/35MIN Diagnoses SIRS (systemic inflammatory response syndrome) R65.10 Elevated troponin R79.89 Leukocytosis D72.829 Leukocytosis type: unspecified Elevated transaminase level R74.01 Thrombocytopenia D69.6 Lactic acidosis E87.20 (3) Leukocytosis Leukocytosis type: unspecified Qualified Code(s): D72.829 - Elevated white blood cell count, unspecified
[2024-07-24] MEDS: LORATADINE 10 MG TAB PO ONE (11:57)
[2024-07-25 03:56] VITALS: TEMP 97.9
[2024-07-25 08:03] VITALS: BP 128/75; PULSE 100; RESP 18; O2SAT 91
[2024-07-25 09:07] LABS: Hematocrit (blood only) 28.8 % (37.0-47.0); Hemoglobin 9.5 g/dl (12.0-16.0); Mean Corpuscular Hemoglobin 30.9 pg (25.0-34.0); Mean Corpuscular Volume 93.8 fL (80.0-100.0); Mean Platelet Volume 9.9 fL (9.4-12.4); Nucleated RBC # (auto) 0.21 K/uL (0.00-0.12); Nucleated RBC % (auto) 1.3 %; Platelet Count 79 K/uL (130-400); RDW Standard Deviation 53.1 fL (36.4-46.3); Red Blood Count 3.07 M/uL (4.20-5.40)
[2024-07-25 09:24] LABS: BUN Creatinine Ratio 11.1 (10-20); Calcium 8.4 mg/dl (8.6-10.3); Creatinine Clr Calc Pharmacy 53.7 ml/min; Potassium 3.5 mmol/L (3.5-5.1)
[2024-07-25] MEDS: LORATADINE 10 MG TAB PO SCH (09:40)
--- NOTE | 2024-07-25 11:08 | Discharge Summary ---
Discharge Summary Date of Service July 25, 2024 Principal Dx & Hospital Course #1 = Principal Diagnosis (1) SIRS (systemic inflammatory response syndrome): -no source of infection -emperic tx with rocephin -IVF -symptoms resolving (2) Elevated troponin: No chest pain or shortness of breath to suggest acute coronary syndrome Repeat x1 further troponin in the morning or sooner if she develops chest pain or shortness of breath This is consistent with demand ischemia Follow up CPK (3) Leukocytosis: Suspected secondary to Neulasta, less likely infection related (4) Elevated transaminase level: Creatinine kinase normal Suspect this is chemotherapy related versus dehydration Repeat levels with a.m. labs show improvement (5) Thrombocytopenia: Suspected secondary to chemotherapy Continue to monitor with a.m. labs (6) Lactic acidosis: Resolved with IV fluids Plan VTE prophylaxis - SCDs, no chemical prophylaxis due to thrombocytopenia Diet - regular Disposition - Plan to d/c in am 07/25/24 Admission HPI Per Admitting Provider Alessia Garcia is an 79-year-old female who presents to the ER with progressive weakness since beginning chemotherapy for metastatic sarcoma. She reports starting a new round of chemotherapy last Friday. On Friday she had bodyaches, bone pain, fatigue, low appetite. She had epistaxis for 4 days which is now resolved. She began progressively weaker and weaker with her mouth very dry. [facility] and recommended she came to the ER for her friend called for an ambulance as she was so weak she was unable to get up. She denies any chest pain, shortness of breath, palpitations, syncope, abdominal pain, respiratory or urinary symptoms. She has had constant diarrhea twice a day for over a year. She has had occasional "heartburn" three times although this is not an acid taste in her mouth but a sudden epigastric pain which is relieved quickly with antinausea medication. She does not take any Tums, PPI or H2 luke. She denies any alcohol use and no history of liver problems. Discharge Exam GENERAL APPEARANCE NAD, activity normal for age, well developed/ well nourished, no cyanosis, pallor, or diaphoresis. EYES lids/conjunctiva normal. EARS/NOSE/THROAT Mucous membranes moist, nares normal, lips/teeth normal uvula midline without oral pharyngeal erythema, exudate or swelling TMs normal bilaterally. No lymphangitis/lymphedema. HEAD/NECK normocephalic atraumatic, no facial trauma, neck is supple. RESPIRATORY respiratory effort normal, speaks in full sentences, no tripod position, no accessory muscle use. Lungs clear to auscultation without rhonchi, wheezes, rales CARDIAC Regular rate and rhythm, no edema. ABDOMINAL Soft, ND/NT. No evidence of fluid wave. No pulsatile masses on exam, rebound tenderness, Lanier sign or pain over Mcburney's point. MUSCLES/EXTREMITIES No abnormal range of motion, no swelling. SKIN Warm, pink and dry. No rashes, dermatoses, petechiae or lesions. NEUROLOGICAL Speech is clear and appropriate. Normal level of consciousness. Gait and coordination are normal. 5/5 strength in all extremities. PSYCH Normal mood and affect. Judgement/competence is appropriate Discharge Plan Discharge Items Patient Disposition: Home - Self-Care Reason For Visit: SUSPECTED CHEMOTHERAPY REACTION VS. SEPSIS Discharge Diagnosis: Dehydration Activity: Resume your previous activity Non-emergency contact: Primary Care Provider Call non-emergency contact if: you have any medication questions Follow-up/Referrals: Criselda Guzman [Primary Care Provider] - Diet: Regular Addtl Attending Provider Instructions: Follow up with PMD in 1 week Pending Studies at Discharge: No Stand-Alone Forms: My [employer], Smoking Cessation Medications and DC Order Prescriptions: Continued ibuprofen [Advil] 200 mg tablet 200 mg PO Q6H PRN (Reason: Pain) cholecalciferol (vitamin D3) 25 mcg (1,000 unit) capsule 25 mcg PO QAM iron bisglycinate chelate 28 mg iron capsule 28 mg PO QAM Adult 50 Plus Probiotic 4 billion cell capsule 4,000 mmu cells PO QAM Rx Instructions: administer with a meal cranberry conc-ascorbic acid 4,200-20 mg capsule 1 cap PO BID prochlorperazine maleate 10 mg tablet 5 mg PO Q6H PRN (Reason: Nausea And Vomiting) multivitamin Tablet 1 tab PO QAM fenofibrate nanocrystallized 145 mg Tablet 145 mg PO QPM acetaminophen 325 mg Tablet 650 mg PO QID PRN (Reason: Pain/Fever) olanzapine 2.5 mg Tablet 2.5 mg PO UD Rx Instructions: Take 2.5mg by mouth starting the day before chemo, the day of and the day after. dexamethasone 4 mg Tablet 8 mg PO UD Rx Instructions: Take 8mg by mouth twice daily starting the day before, during and after chemo. Admission Data Admit Date/Time: 07/23/24 16:21 Attending Provider: Ang Rg Admit Provider: Stephane eKn Primary Care Provider: Criselda Guzman Other Providers: Stephane Ken Hospital Stay Data Consultations 07/23/24 14:15 ED Decision to Admit Stat Pending Results Patient Have Any Pending Studies at Discharge: No Discharge Instructions Given to Patient (Per Discharging Provider) Follow up with PMD in 1 week Total Time Total Time Spent Total Time Spent (In Minutes): 50 Coding Level of Care Code 28827 INP/OBS DISCH >30 MIN Diagnoses SIRS (systemic inflammatory response syndrome) R65.10 Elevated troponin R79.89 Leukocytosis D72.829 Leukocytosis type: unspecified Elevated transaminase level R74.01 Thrombocytopenia D69.6 Lactic acidosis E87.20
--- NOTE | 2024-08-02 08:12 | Coding Query ---
To promote full compliance with coding requirements relating to patient care, provider participation is requested in all cases of bevel mill operator uncertainty. Please assist us with the question(s) below: Coding Question(s): The documentation below lists dehydration as a likely cause of the patient's SIRS and was present in the H&P then subsequently fell off all further documentation. Please indicate if it is still a possible diagnosis or ruled out. "(1) SIRS (systemic inflammatory response syndrome): Plan: No source of infection from history however UA pending. Ceftriaxone IV given in the ER however more likely explanation is that this is due to dehydration and her chemotherapy Dehydration as a possible cause of SIRS Diagnosed and POA ( x ) Ruled out ( ) Other, please specify . Physician's Response(s): JAS
== END 2024-07-25 13:55 | disposition home or self-care (01) | DRG 641 ==
LOC: ED 12:04 → EDINP 16:21 → SUATTDRO 16:21 → 2N 07-24 18:56

== ENCOUNTER 2024-08-12 16:50 | Inpatient (IN) ==
--- NOTE | 2024-08-12 17:40 | Emergency Department Note ---
Impression & Plan Sepsis, Acute UTI (urinary tract infection), Leukocytosis, Thrombocytopenia, Elevated troponin, Transaminitis, Acute hypokalemia ED Provider Note HISTORY OF PRESENT ILLNESS: Patient is an 79-year-old female presenting with generalized weakness and concern for hydration. Patient reports that she is currently being treated with chemotherapy for sarcoma. She states that she is on 2 weeks of chemotherapy and then 1 week off. Reports that she last received chemo a week ago. States that for the last week she has had no appetite and increasing weakness. She states that she is intermittently nauseous over the last week but denies any vomiting or diarrhea. She denies any fevers at home. She denies any abdominal pain. Denies any chest pain or shortness of breath. She reports that this week is her "off week" of chemotherapy. States that 3 weeks ago on her last off week, she had similar symptoms and had to be admitted due to dehydration. She denies any recent sick contact exposures. ROS: as above PHYSICAL EXAM: Constitutional: Patient appears in no acute distress. HENT: Head: Normocephalic and atraumatic. Eyes: EOMI, PERRL Mouth/Throat: Mucous membranes moist. Neck: Trachea midline. Neck supple. Cardiovascular: Tachycardic with regular rhythm. No murmurs, rubs or gallops. Intact distal pulses. Pulmonary/Chest: No respiratory distress. Breath sounds clear and equal bilaterally. No wheezes or rales. Abdominal: Abdomen soft, no tenderness, rebound or guarding. Musculoskeletal: No edema, tenderness or deformity noted. Skin: Warm and dry. No rash, erythema, pallor or cyanosis Psychiatric: Appropriate mood and affect for situation. Neurological: Alert and keenly responsive. CN II-XII grossly intact, moving all extremities equally and fully. MDM: - Vitals signs showed hypertension and tachycardia. - History obtained via patient. History as above. 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 At this time, monitor showed rate of 105 bpm with normal sinus rhythm, per my interpretation. - External medical records reviewed. Discharge summary dated 07/25/2024 was reviewed. Patient was admitted that time for SIRS criteria and elevated troponin. - EKG image interpreted by myself showed normal sinus rhythm. Rate tachycardic 113 bpm. QT 320. No acute ischemic changes. - Laboratory workup interpreted by myself showed leukocytosis (WBC 20.40); anemia (Hgb 8.6); thrombocytopenia (plt 23); normal PT/INR; hypokalemia (K 3.2); hypocalcemia (Ca 8.5); transaminitis (AST 48; ALT 73); normal total bilirubin; elevated troponin (29.4); normal procalcitonin; normal TSH - Blood cultures obtained - UA showed evidence of infection. Given 2g IV rocephin - Viral respiratory panel negative - CXR image reviewed by myself is negative for pneumonia, per my interpretation. - Patient given 2L NS in ER. Patient's sepsis fluid volume calculation based on ideal body weight is 1704.30 mL. - Patient meets sepsis criteria based on her leukocytosis and UTI. Will admit to hospitalist service. - Discussion was had with sample case porter about patient's case and need for admission - Hospitalist consulted for admission - Patient admitted to [facility] hospitalist service for further evaluation and management. ASSESSMENT AND PLAN: Diagnosis: Sepsis; acute UTI; leukocytosis; thrombocytopenia; transaminitis; acute hypokalemia; elevated troponin Plan: admit Past Med/Surg History Problem List (Updated 08/12/24 @ 19:33 by Carmen Powers MD) Acute hypokalemia (Acute) Transaminitis (Acute) Elevated troponin (Acute) Thrombocytopenia (Acute) Leukocytosis (Acute) Acute UTI (urinary tract infection) (Acute) Sepsis (Acute) SIRS (systemic inflammatory response syndrome) ILD (interstitial lung disease) Allergic rhinitis with postnasal drip Chronic cough Upper airway cough syndrome Multiple pulmonary nodules Lymphedema Primary myxofibrosarcoma (Chronic) Mass of left thigh Encounter for pre-operative examination Medical History Osteopenia Upper airway cough syndrome Primary myxofibrosarcoma dx spring 2022, left thigh; has mets to lung, one nodule in left lobe and 2 more nodules now in site of previously removed sarcomas; has also had 5 rounds of xrt (july-september 2022, total 5 weeks of treatments) Multiple pulmonary nodules CARLA nodule was bx and proven metastatic sarcoma Lymphedema ILD (interstitial lung disease) 'ILD/pulmonary fibrosis' per pulm note 01/22/24: 'increased reticular markings on the periphery of bilateral lower lobes with early honeycombing. No traction bronchiectasis', autoimmune workup ordered and was negative; per 03/15/24 note: 'Given that the patient's functional status is good, I do not think there is the need to start any antifibrotic's right now. Will keep a close eye on TLC as well as DLCO and if there is any significant decline in them then Ofev or Esbriet could be thought of. This was relayed to the patient and she is agreeable with the plan" Chronic cough Allergic rhinitis with postnasal drip History of uterine fibroid no sx needed Osteoarthritis Migraine hx, no pain more visual disturbance/flashes of light Hyperlipidemia Surgical History Port-A-Cath in place (04/12/24) Insertion Access Port to Left Subclavian with Fluoroscopy(Left) - Reyes Moeller DO History of surgery 12/04/22 and 04/17/23, [facility], myxofibrosarcoma removed in left thigh muscle; 2 new nodules have now formed in same the spot Hx of cataract extraction right/left History of cholecystectomy [place] teeth removed H/O eye surgery RT/LEFT CORNEA "SCRAPING" SURGERY Family History Sister Breast cancer Cancer Pancreatic Other No family history of adverse response to anesthesia Social History Smoking Status: Never smoker Second Hand Exposure: Yes (hx); Do You Dip or Chew Tobacco: No; Hx Alcohol Use: Yes Alcohol type: wine Alcohol Intake Frequency: Monthly or Less Hx Substance Use: No Preferred Language: Danish Communication Ability: Effective Visual Impairment: Partially Limited Hearing Ability: Normal Identification Clerk Required: No Beliefs That Will Affect Care: Taoism marital status: Current Living Situation: Alone current occupational status: retired How many Children do You have: 1 Feels Safe at Home: Yes Diet: regular during the past year weight has: increased > 10 lbs Assistive Devices: Glasses Allergies Allergies Allergy/AdvReac Type Severity Reaction Status Date / Time No Known Allergies Allergy Unknown Verified 04/27/24 10:53 Home Meds Home Medications Medication Instructions Recorded Confirmed fenofibrate nanocrystallized 145 145 mg PO QPM 05/14/22 07/23/24 mg tablet multivitamin 1 tab PO QAM 05/14/22 07/23/24 ibuprofen 200 mg tablet (Advil) 200 mg PO Q6H PRN Pain 10/07/22 07/23/24 iron bisglycinate chelate 28 mg PO QAM 05/20/23 07/23/24 lactobacillus combination no.9 4 4,000 mmu cells PO QAM 05/20/23 07/23/24 billion cell capsule (Adult 50 Plus Probiotic) cholecalciferol (vitamin D3) 25 25 mcg PO QAM 11/20/23 07/23/24 mcg (1,000 unit) capsule cranberry concentrate-ascorbic 1 cap PO BID 03/16/24 07/23/24 acid 4,200 mg-20 mg capsule prochlorperazine maleate 10 mg 5 mg PO Q6H PRN Nausea And Vomiting 04/27/24 07/23/24 tablet acetaminophen 325 mg tablet 650 mg PO QID PRN Pain/Fever 07/23/24 07/23/24 dexamethasone 4 mg tablet 8 mg PO UD 07/23/24 07/23/24 olanzapine 2.5 mg tablet 2.5 mg PO UD 07/23/24 07/23/24 Results & Data (ED) Vital Signs Vital Signs - 24 hr 08/12/24 16:58 08/12/24 17:05 08/12/24 17:18 Temperature 36.7 C Temperature Source Oral Pulse Rate 117 H 118 H Pulse Rate [Apical] Respiratory Rate 14 Respiratory Effort / Characteristics Non-Labored Spontaneous Respiratory Depth Normal Respiratory Pattern Regular Blood Pressure 160/96 H Blood Pressure [Right Arm] Blood Pressure Mean 117 Blood Pressure Mean [Right Arm] Pulse Oximetry 98 Oxygen Delivery Method Room Air Room Air Sepsis Recent Fever Within 48 Hours No Sepsis New/Unexplained Change in Mental Status N/A Sepsis Action Taken by Nursing No Action Required 08/12/24 19:00 Temperature Temperature Source Pulse Rate Pulse Rate [Apical] 109 H Respiratory Rate 18 Respiratory Effort / Characteristics Respiratory Depth Normal Respiratory Pattern Blood Pressure Blood Pressure [Right Arm] 134/66 Blood Pressure Mean Blood Pressure Mean [Right Arm] 88 Pulse Oximetry Oxygen Delivery Method Room Air Sepsis Recent Fever Within 48 Hours Sepsis New/Unexplained Change in Mental Status Sepsis Action Taken by Nursing Laboratory Data 08/12/24 17:06 08/12/24 17:06 Lab Results 08/12/24 08/12/24 08/12/24 Range/Units 17:06 17:34 18:18 WBC 20.40 H (4.8-10.8) K/ul RBC 2.71 L (4.20-5.40) M/uL Hgb 8.6 L (12.0-16.0) g/dl Hct 26.0 L (37.0-47.0) % MCV 95.9 (80.0-100.0) fL MCH 31.7 (25.0-34.0) pg MCHC 33.1 (32.0-36.0) g/dL RDW Std Deviation 53.8 H (36.4-46.3) fL RDW Coeff of Shavon 15.9 H (11.5-14.5) % Plt Count 23 L* (130-400) K/uL MPV 11.6 (9.4-12.4) fL Absolute Nucleated RBC 0.78 H (0.00-0.12) K/uL Nucleated RBC % (auto) 3.8 % Neutrophils % (Manual) 55 % Lymphocytes % (Manual) 26 % Monocytes % (Manual) 7 % Basophils % (Manual) 2 % Metamyelocytes % (Man) 3 % Myelocytes % (Man) 6 % Promyelocytes % (Man) 1 % Neutrophils # (Manual) 11.22 H (1.40-6.50) K/uL Total Absolute Neuts 11.22 H (1.4-6.5) K/uL Lymphocytes # (Manual) 5.30 H (1.2-3.4) K/uL Total Abs Lymphocytes 5.30 H (1.2-3.4) K/uL Monocytes # (Manual) 1.43 H (0.11-0.59) K/uL Basophils # (Manual) 0.41 H (0-0.2) K/uL Metamyelocytes # (Man) 0.61 H (0-0) K/uL Myelocytes # (Manual) 1.22 H (0-0) K/uL Promyelocytes # (Man) 0.20 H (0-0) K/uL Toxic Granulation 1+ Dohle Bodies 1+ Polychromasia 1+ PT 11.4 (9.0-12.0) Seconds INR 1.1 (0.9-1.1) Sodium 138 (136-145) mmol/L Potassium 3.2 L (3.5-5.1) mmol/L Chloride 107 (98-107) mmol/L Carbon Dioxide 26 (21-32) mmol/L Anion Gap 5 (3-11) BUN 12 (6-23) mg/dl Creatinine 0.79 (0.6-1.2) mg/dl Est Cr Clr Drug Dosing 55.8 ml/min eGFR 75.57 BUN/Creatinine Ratio 15.2 (10-20) Glucose 112 H (70-99(Fasting)) mg/dl Calcium 8.5 L (8.6-10.3) mg/dl Magnesium 1.7 (1.7-2.4) mg/dl Total Bilirubin 0.4 (0.2-1.0) mg/dl AST 48 H (13-39) U/L ALT 73 H (7-52) U/L Alkaline Phosphatase 100 (34-104) U/L Total Creatine Kinase 31 (26-192) U/L Troponin I High Sens 29.4 H (0-14) pg/ml Total Protein 5.7 L (6.0-8.3) gm/dl Albumin 3.3 L (3.4-5.0) gm/dl Globulin 2.4 L (2.5-4.0) gm/dl Albumin/Globulin Ratio 1.4 (0.9-2) Procalcitonin 0.34 (0-0.5) ng/ml TSH 3.229 (0.300-4.500) uIu/ml Urine Color Dark Yellow Urine Appearance Turbid A (Clear) Urine pH 5.0 (4.5-7.5) Ur Specific Mathis 1.021 (1.000-1.030) Urine Protein Negative (Negative) Urine Glucose (UA) Negative (Negative) Urine Ketones Trace H (Negative) Urine Blood Negative (Negative) Urine Nitrite Negative (Negative) Urine Bilirubin Negative (Negative) Urine Urobilinogen Negative (Negative) Ur Leukocyte Esterase Negative (Negative) Urine WBC (Auto) 0-5 (0-5) /hpf Urine RBC (Auto) 3-5 H (0-2) /hpf U Hyaline Cast (Auto) 3-5 H (0-2) /lpf U Epithel Cells (Auto) 3-5 H (0-2) /hpf Urine Bacteria (Auto) 3+ H (None Seen) Amorphous Sediment Present A (None Prsent) Hyaline Casts P (None Presnt) /lpf Adenovirus (PCR) Not Detected (NotDetected) B. pertussis DNA (PCR) Not Detected (NotDetected) B.parapertussis DNA PCR Not Detected (NotDetected) C. pneumoniae DNA (PCR) Not Detected (NotDetected) Coronavirus OC43 (PCR) Not Detected (NotDetected) Coronavirus HKU1 (PCR) Not Detected (NotDetected) Coronavirus 229E (PCR) Not Detected (NotDetected) SARS-CoV-2 (PCR) Not Detected (NotDetected) Coronavirus NL63 (PCR) Not Detected (NotDetected) Human Metapneumovir PCR Not Detected (NotDetected) Influenza Type A (PCR) Not Detected (NotDetected) Influenza Type B (PCR) Not Detected (NotDetected) M. pneumoniae (PCR) Not Detected (NotDetected) Parainfluenza 1 (PCR) Not Detected (NotDetected) Parainfluenza 2 (PCR) Not Detected (NotDetected) Parainfluenza 3 (PCR) Not Detected (NotDetected) Parainfluenza 4 (PCR) Not Detected (NotDetected) RSV (PCR) Not Detected (NotDetected) Entero/Rhino (PCR) Not Detected (NotDetected) Administered Medications Discontinued Medications Sodium Chloride (Nss) 2,000 mls @ 999 mls/hr IV .Q2H1M ONE Stop: 08/12/24 19:18 Last Admin: 08/12/24 18:12 Dose: 999 mls/hr Documented By: [employer] Imaging Data Radiologist's Impression: Chest X-Ray 08/12/24 17:18 EXAM: Radiograph of the Chest 1 View INDICATION: Weakness. TECHNIQUE: Frontal view of the chest. COMPARISON: 07/23/2024 FINDINGS: Lungs and pleural spaces: No consolidation or pulmonary edema. No pleural effusion or pneumothorax. Heart: Shape and configuration within normal limits allowing for technique. Mediastinum: Normal contour. Bones/joints: No fracture, erosion or dislocation. Soft tissues: No abnormality noted. No radiopaque foreign body noted. Tubes, lines and devices: Left subclavian central venous port catheter terminates in the mid SVC. Upper abdomen: No abnormality noted. IMPRESSION: No acute cardiopulmonary disease. ACT 112: N/A Electronically signed by Traci Kirby 08-12-2024 5:45 PM Discharge Plan Visit Data Chief Complaint: Dehydration Stated Complaint: DEHYDRATION ED Provider: Carmen Powers Discharge Problem: Sepsis, Acute UTI (urinary tract infection), Leukocytosis, Thrombocytopenia, Elevated troponin, Transaminitis, Acute hypokalemia Forms Stand Alone Forms: My [facility] DVDPlay Prescriptions Prescriptions: No Action ibuprofen [Advil] 200 mg tablet 200 mg PO Q6H PRN (Reason: Pain) cholecalciferol (vitamin D3) 25 mcg (1,000 unit) capsule 25 mcg PO QAM iron bisglycinate chelate 28 mg iron capsule 28 mg PO QAM Adult 50 Plus Probiotic 4 billion cell capsule 4,000 mmu cells PO QAM Rx Instructions: administer with a meal cranberry conc-ascorbic acid 4,200-20 mg capsule 1 cap PO BID prochlorperazine maleate 10 mg tablet 5 mg PO Q6H PRN (Reason: Nausea And Vomiting) multivitamin Tablet 1 tab PO QAM fenofibrate nanocrystallized 145 mg Tablet 145 mg PO QPM acetaminophen 325 mg Tablet 650 mg PO QID PRN (Reason: Pain/Fever) olanzapine 2.5 mg Tablet 2.5 mg PO UD Rx Instructions: Take 2.5mg by mouth starting the day before chemo, the day of and the day after. dexamethasone 4 mg Tablet 8 mg PO UD Rx Instructions: Take 8mg by mouth twice daily starting the day before, during and after chemo. Referrals Referrals: Criselda Guzman [Primary Care Provider] -
--- NOTE | 2024-08-12 17:45 | XRay Report ---
EXAM: Radiograph of the Chest 1 View INDICATION: Weakness. TECHNIQUE: Frontal view of the chest. COMPARISON: 07/23/2024 FINDINGS: Lungs and pleural spaces: No consolidation or pulmonary edema. No pleural effusion or pneumothorax. Heart: Shape and configuration within normal limits allowing for technique. Mediastinum: Normal contour. Bones/joints: No fracture, erosion or dislocation. Soft tissues: No abnormality noted. No radiopaque foreign body noted. Tubes, lines and devices: Left subclavian central venous port catheter terminates in the mid SVC. Upper abdomen: No abnormality noted. IMPRESSION: No acute cardiopulmonary disease. ACT 112: N/A Electronically signed by Traci Kirby 08-12-2024 5:45 PM
[2024-08-12] MEDS: SODIUM CHLORIDE 0.9% 2,000 ML IV ONE (18:12)
[2024-08-12 18:24] LABS: Albumin Globulin Ratio 1.4 (0.9-2); Albumin Level 3.3 gm/dl (3.4-5.0); BUN Creatinine Ratio 15.2 (10-20); Bilirubin,Total 0.4 mg/dl (0.2-1.0); Calcium 8.5 mg/dl (8.6-10.3); Creatinine Clr Calc Pharmacy 55.8 ml/min; Globulin 2.4 gm/dl (2.5-4.0); Magnesium 1.7 mg/dl (1.7-2.4); Potassium 3.2 mmol/L (3.5-5.1); Total Protein 5.7 gm/dl (6.0-8.3)
[2024-08-12 18:26] LABS: Hemoglobin 8.6 g/dl (12.0-16.0); Mean Corpuscular Hemoglobin 31.7 pg (25.0-34.0); Mean Corpuscular Hgb Conc 33.1 g/dL (32.0-36.0); Mean Corpuscular Volume 95.9 fL (80.0-100.0); Mean Platelet Volume 11.6 fL (9.4-12.4); Nucleated RBC # (auto) 0.78 K/uL (0.00-0.12); Nucleated RBC % (auto) 3.8 %; Platelet Count 23 K/uL (130-400); RDW Coefficient of Variation 15.9 % (11.5-14.5); RDW Standard Deviation 53.8 fL (36.4-46.3); Red Blood Count 2.71 M/uL (4.20-5.40)
[2024-08-12 18:30] LABS: Troponin I High Sensitivity 29.4 pg/ml (0-14)
[2024-08-12 18:35] LABS: Adenovirus PCR Not Detected (NotDetected); Bordetella parapertussis PCR Not Detected (NotDetected); Bordetella pertussis PCR Not Detected (NotDetected); Chlamydia pneumoniae PCR Not Detected (NotDetected); Coronavirus 229E PCR Not Detected (NotDetected); Coronavirus CoV-2 (COVID19)PCR Not Detected (NotDetected); Coronavirus HKU1 PCR Not Detected (NotDetected); Coronavirus NL63 PCR Not Detected (NotDetected); Coronavirus OC43PCR Not Detected (NotDetected); Human Metapneumovirus PCR Not Detected (NotDetected); Influenza A PCR Not Detected (NotDetected); Influenza B PCR Not Detected (NotDetected); Mycoplasma pneumoniae PCR Not Detected (NotDetected); Parainfluenza Virus 1 PCR Not Detected (NotDetected); Parainfluenza Virus 2 PCR Not Detected (NotDetected); Parainfluenza Virus 3 PCR Not Detected (NotDetected); Parainfluenza Virus 4 PCR Not Detected (NotDetected); Respiratory Syncytial VirusPCR Not Detected (NotDetected); Rhinovirus/Enterovirus PCR Not Detected (NotDetected)
[2024-08-12 18:38] LABS: INR 1.1 (0.9-1.1); Prothrombin Time 11.4 Seconds (9.0-12.0); Thyroid Stimulating Hormone 3.229 uIu/ml (0.300-4.500)
[2024-08-12 18:48] LABS: Appearance Urine Turbid (Clear); Bilirubin Urine Negative (Negative); Blood Urine Negative (Negative); Color Urine Dark Yellow; Glucose Urine UA Negative (Negative); Ketones Urine Trace (Negative); Leukocyte Esterase Urine Negative (Negative); Nitrite Urine Negative (Negative); Protein Urine Negative (Negative); Specific Gravity Urine 1.021 (1.000-1.030); Urobilinogen Urine Negative (Negative); WBC Urine Automated 0-5 /hpf (0-5)
[2024-08-12 18:59] LABS: Amorphous Sediment Urine Present (None Prsent); Bacteria Urine Automated 3+ (None Seen)
[2024-08-12 19:00] LABS: Hyaline Casts Urine P /lpf (None Presnt)
[2024-08-12 19:21] LABS: ANC (manual) 11.22 K/uL (1.4-6.5); Basophils # (manual) 0.41 K/uL (0-0.2); Basophils % (manual) 2 %; Dohle Bodies 1+; Lymphocytes % (manual) 26 %; Metamyelocytes # (manual) 0.61 K/uL (0-0); Metamyelocytes % (manual) 3 %; Monocytes # (manual) 1.43 K/uL (0.11-0.59); Monocytes % (manual) 7 %; Myelocytes # (manual) 1.22 K/uL (0-0); Myelocytes % (manual) 6 %; Neutrophils # (manual) 11.22 K/uL (1.40-6.50); Neutrophils % (manual) 55 %; Polychromasia 1+; Promyelocytes % (manual) 1 %; Toxic Granulation 1+
--- NOTE | 2024-08-12 19:23 | History & Physical Report ---
Date of Service August 12, 2024 Assessment & Plan (1) Acute UTI (urinary tract infection): (2) Thrombocytopenia: (3) Chemotherapy adverse reaction: (4) Hypokalemia: (5) Hypomagnesemia: (6) Transaminitis: Plan Patient is an 79-year-old female with past medical history of sarcoma s/p radiation undergoing current chemotherapy. patient was recently admitted from 07/04/20 to 07/25 for systemic inflammation response syndrome after receiving chemotherapy. Patient stated her doses were reduced after that admission, however after receiving double doses of chemotherapy last Friday, she has dehydration, weakness, and decreased appetite for several days. Patient was found to have a UTI and platelet count of 23 at time of admission. She is being admitted for IV antibiotics, IV fluids, IV electrolyte repletion, and hematology consult placed for thrombocytopenia. #UTI asymptomatic UA reveals trace ketones, 3-5 RBC, 3-5 hyaline cast, 3-5 epithelial cells, 3+ bacteria Significant leukocytosis with WBC 20.4 however thought to be secondary to chemotherapy Nonseptic on admission, VSS, afebrile, lactate negative, Pro-Nnamdi negative follow blood and urine cultures continue Rocephin Neumann cath in place from ED #thrombocytopenia no signs of bleeding on eval platelet count 23 on admission - anticipate to downtrend with IV fluids in ED, repeat CBC in AM Suspect 2/2 chemotherapy Spoke with heme/onc, Dr. Mon - continue IVF, no need for transfusion at this time Peripheral smear + type/screen ordered Heme/onc consulted #Electrolyte abnormalities Suspect 2/2 hypovolemia/dehydration/chronic diarrhea K+ 3.2, mag 1.7 3 bags K rider ordered +40 mEq p.o. KCl 2G IV mag ordered EKG showing no acute changes, monitor on telemetry Trends BMP and mag #chemotherapy reaction patient with recurrent chemotherapy reactions of dehydration, weakness, decreased appetite requiring hospitalization IV hydration with 2L NSS in ED, continue fluid resuscitation with LR at 80 mL/hour overnight Supportive care with nausea control, Tylenol as needed PT/OT ordered heme/onc consulted - May need to consider further decreasing doses of immunotherapy agents or transitioning to better option elevated troponin 29.4 - improving from recent admission, 2/2 demand with inflammation #Transaminitis AST 48, ALT 73, CK negative similar to recent admission - suspected chemotherapy related versus dehydration fenofibrate discontinued with PCP trend CMP VTE ppx: SCDs, defer chemical PPx due to thrombocytopenia Diet: regular Dispo: med/tele Admission and Anticipated Discharge Date Admission Date: 08/12/24 History of Present Illness Chief Complaint: Dehydration Primary Care Provider: Criselda Guzman Patient is an 79-year-old female with past medical history of sarcoma s/p radiation undergoing current chemotherapy. patient was recently admitted from 07/04/20 to 07/25 for systemic inflammation response syndrome after receiving chemotherapy. Patient stated her doses were reduced after that admission, however after receiving double doses of chemotherapy last Friday, she has dehydration, weakness, and decreased appetite for several days. Patient was found to have a UTI and platelet count of 23 at time of admission. She is being admitted for IV antibiotics, IV fluids, IV electrolyte repletion, and hematology consult placed for thrombocytopenia. Patient seen at bedside. She stated that she alternates between chemotherapy every other week. 1 week she has 1 drug, the next week she has to. It is when she has 2 drugs will that she has severe symptoms. when she was admitted in July, they reduced her doses by 20%, however after receiving them last Friday she still has weakness, dehydration, and poor appetite. She also endorses decrease in urination but believes it secondary to dehydration. she endorses chills however chronic. She also endorses diarrhea, however chronic. She does have new onset burning pain in her feet, she typically gets burning in her hands with the chemotherapy. She also stated her hands are more dry and with a mild red rash. Patient denies headache, dizziness, lightheadedness,dyspnea, dyspnea on exertion, chest pain, abdominal pain, nausea, vomiting, dysuria, hematuria. She has chronic left lower extremity edema due to lymphoma. She stated she has 2 appointments in [place] next week that she would like to try to make it today. She stated she typically does well in regards to nausea with chemotherapy, she just takes medication as needed. Regarding her home medications, she took them today. She stated her PCP recently discontinued her cholesterol medication because it was thought to be contributing to her chronic diarrhea. She wishes to be full code. Spoke with bulk sealer, Dr. Mon. He just recommended fluids and antiemetics. No need for transfusion at time of admission. Allergies Allergy/AdvReac Type Severity Reaction Status Date / Time No Known Allergies Allergy Unknown Verified 08/12/24 20:34 Home Medications Medication Instructions Recorded Confirmed Type ibuprofen 200 mg tablet (Advil) 200 mg PO Q6H PRN Pain 10/07/22 08/12/24 History iron bisglycinate chelate 28 mg PO QAM 05/20/23 08/12/24 History cholecalciferol (vitamin D3) 25 25 mcg PO QAM 11/20/23 08/12/24 History mcg (1,000 unit) capsule cranberry concentrate-ascorbic 1 cap PO BID 03/16/24 08/12/24 History acid 4,200 mg-20 mg capsule prochlorperazine maleate 10 mg 10 mg PO Q6H PRN Nausea And 04/27/24 08/12/24 History tablet Vomiting acetaminophen 325 mg tablet 650 mg PO QID PRN Pain/Fever 07/23/24 08/12/24 History dexamethasone 4 mg tablet 8 mg PO UD 07/23/24 08/12/24 History olanzapine 2.5 mg tablet 2.5 mg PO UD 07/23/24 08/12/24 History Lactobacillus rhamnosus GG 10 1 cap PO DAILY 08/12/24 08/12/24 History billion cell capsule (Culturelle) loratadine-pseudoephedrine ER 10 1 tab PO DAILY 08/12/24 08/12/24 History mg-240 mg tablet,extended [id number] (Claritin-D 24 Hour) [id number] 80 mcg-lutein 1 tab PO DAILY 08/12/24 08/12/24 History 166.7 mcg-herbal 66.7 mg chew tablet (Alive Premium Women's 50 Plus) Past Med/Surg History Problem List (Updated 08/12/24 @ 22:45 by Joaquina Damon) Hypomagnesemia Hypokalemia Chemotherapy adverse reaction Acute hypokalemia (Acute) Transaminitis (Acute) Elevated troponin (Acute) Thrombocytopenia (Acute) Leukocytosis (Acute) Acute UTI (urinary tract infection) (Acute) Sepsis (Acute) SIRS (systemic inflammatory response syndrome) ILD (interstitial lung disease) Allergic rhinitis with postnasal drip Chronic cough Upper airway cough syndrome Multiple pulmonary nodules Lymphedema Primary myxofibrosarcoma (Chronic) Mass of left thigh Encounter for pre-operative examination Medical History Osteopenia Upper airway cough syndrome Primary myxofibrosarcoma dx spring 2022, left thigh; has mets to lung, one nodule in left lobe and 2 more nodules now in site of previously removed sarcomas; has also had 5 rounds of xrt (july-september 2022, total 5 weeks of treatments) Multiple pulmonary nodules CARLA nodule was bx and proven metastatic sarcoma Lymphedema ILD (interstitial lung disease) 'ILD/pulmonary fibrosis' per pulm note 01/22/24: 'increased reticular markings on the periphery of bilateral lower lobes with early honeycombing. No traction bronchiectasis', autoimmune workup ordered and was negative; per 03/15/24 note: 'Given that the patient's functional status is good, I do not think there is the need to start any antifibrotic's right now. Will keep a close eye on TLC as well as DLCO and if there is any significant decline in them then Ofev or Esbriet could be thought of. This was relayed to the patient and she is agreeable with the plan" Chronic cough Allergic rhinitis with postnasal drip History of uterine fibroid no sx needed Osteoarthritis Migraine hx, no pain more visual disturbance/flashes of light Hyperlipidemia Surgical History Port-A-Cath in place (04/12/24) Insertion Access Port to Left Subclavian with Fluoroscopy(Left) - Reyes Moeller DO History of surgery 12/04/22 and 04/17/23, C, myxofibrosarcoma removed in left thigh muscle; 2 new nodules have now formed in same the spot Hx of cataract extraction right/left History of cholecystectomy [place] teeth removed H/O eye surgery RT/LEFT CORNEA "SCRAPING" SURGERY Family History Sister Breast cancer Cancer Pancreatic Other No family history of adverse response to anesthesia Social History Smoking Status: Never smoker Second Hand Exposure: Yes (hx); Do You Dip or Chew Tobacco: No; Hx Alcohol Use: No Hx Substance Use: No Preferred Language: German Communication Ability: Effective Visual Impairment: Partially Limited Hearing Ability: Normal Angledozer Operator Required: No Beliefs That Will Affect Care: Rastafarian Rastafarian Beliefs: Prodestant marital status: Current Living Situation: Alone current occupational status: retired How many Children do You have: 1 Feels Safe at Home: Yes Safety Concerns: Feels Safe At This Time Diet: regular during the past year weight has: increased > 10 lbs Assistive Devices: Glasses Review of Systems Review of Systems: see HPI Physical Exam Physical Exam: The patient is awake, alert and oriented 3, well developed and well nourished, normocephalic and atraumatic, in no acute distress. Non-toxic appearing. HEENT- EOMI, mucous membranes dry. Hearing grossly intact. Heart-normal S1 and S2. No murmurs, rubs or gallops. Lungs-clear bilaterally, no respiratory distress, no accessory muscle use. Abdomen-normal bowel sounds and soft. No ascites noted. Non-tender. Extremities- no clubbing, cyanosis, or edema. Rheumatologic-normal range of motion. Psychiatric-normal affect. Results & Data Results & Data Vital Signs (Past 12 Hours) Vital Signs Temp Pulse Pulse Resp BP BP Pulse Ox 08/12/24 19:00 109 H 18 134/66 08/12/24 17:18 08/12/24 17:05 118 H 08/12/24 16:58 36.7 C 117 H 14 160/96 H 98 O2 Del Method 08/12/24 19:00 Room Air 08/12/24 17:18 Room Air 08/12/24 17:05 08/12/24 16:58 Room Air Laboratory Results Reviewed CBC, PT/INR, CMP, Pro-Nnamdi, bio fire, UA, troponin, mag. tsh, ck, lactate Diagnostic Findings reviewed CXR Medications Administered ed - 2L NSS, Rocephin 2G IV Admission 2G IV mag, 3 bags K rider 40 mEq p.o. KCl ECG Additional Comments: sinus tachycardia, rate 113 qtc 438 Code Status & VTE Plan Code Status full code VTE Prophylaxis Plan VTE Prophylaxis will be ordered: Yes Supervising Physician Co-Signing Physician Notes Attending addendum: I have physically seen this patient, have supervised the FEI's activities, and agree with the H&P unless as otherwise noted. Assessment and Plan: The patient is an 79-year-old female with past medical history including sarcoma status post radiation undergoing current chemotherapy every other week. She presents to the emergency department with generalized weakness, dehydration and overall poor appetite. She reports decreased frequency of urination and volume of urination. She has had some intermittent chills, but also has had intermittent issues with ongoing loose stools. She has had a periodic rash. Due to the constellation of symptoms, and symptoms of urine tract infection and the hydration, patient was referred to the [facility] hospitalist service for evaluation for possible admission. #Urinary tract infection- Follow urine culture and sensitivity Ceftriaxone 2 g IV every 24 hours Neumann catheter to be continued Thrombocytopenia- Platelets of [address] Romano from hematology oncology advises no transfusion needed at this time no spontaneous bleeding Type and screen performed Electrolyte disturbances- Potassium 3.2, for which she received oral and IV supplementation, and magnesium 1.7 will be replaced as well. Placed on LR at 80 mL/h x 1 L overnight Repeat laboratories in a.m. Transaminitis- AST 48, ALT 73 Follow serially Generalized deconditioning and weakness- Consult PT/OT PG Care Time/CCT Total # of Minutes Spent Total Time Spent with Patient: Total time spent is greater than 50% in coordination of care (as documented) at patient's floor/unit and/or counseling patient: Coding Level of Care Code 95603 INT INP/OBS CARE 3/75MIN Diagnoses Acute UTI (urinary tract infection) N39.0 Thrombocytopenia D69.6 Chemotherapy adverse reaction T45.1X5A Hypokalemia E87.6 Hypomagnesemia E83.42 Transaminitis R74.01
[2024-08-12] MEDS: cefTRIAXone SODIUM 2,000 MG/50 ML BAG IV STA (19:29)
[2024-08-12] MEDS: POTASSIUM CHLORIDE / WTR 10 MEQ/100 ML PLCT IV SCH (20:59)
[2024-08-12] MEDS: POTASSIUM CHLORIDE CRTAB 20 MEQ TABCR PO STA (20:59)
[2024-08-12] MEDS: MAGNESIUM SULFATE / D5W 1 GM/100 ML BAG IV SCH (20:59)
[2024-08-12] MEDS ORDERED: MELATONIN 3 MG TAB PO PRN (22:45)
[2024-08-12] MEDS ORDERED: ACETAMINOPHEN 325 MG TAB PO PRN (22:45)
[2024-08-12] MEDS ORDERED: OLANZAPINE 2.5 MG TAB PO SCH (22:45)
[2024-08-13] MEDS: LACTATED RINGER'S 1,000 ML IV SCH (00:07)
[2024-08-13 06:50] LABS: Hematocrit (blood only) 23.6 % (37.0-47.0); Hemoglobin 7.5 g/dl (12.0-16.0); Mean Corpuscular Hgb Conc 31.8 g/dL (32.0-36.0); Mean Corpuscular Volume 97.5 fL (80.0-100.0); Mean Platelet Volume 11.3 fL (9.4-12.4); Nucleated RBC # (auto) 0.57 K/uL (0.00-0.12); Nucleated RBC % (auto) 2.8 %; Platelet Count 31 K/uL (130-400); RDW Coefficient of Variation 16.2 % (11.5-14.5); RDW Standard Deviation 56.1 fL (36.4-46.3); Red Blood Count 2.42 M/uL (4.20-5.40); White Blood Count 20.15 K/ul (4.8-10.8)
[2024-08-13 07:28] LABS: Albumin Globulin Ratio 1.6 (0.9-2); Albumin Level 3.1 gm/dl (3.4-5.0); BUN Creatinine Ratio 9.2 (10-20); Bilirubin,Total 0.3 mg/dl (0.2-1.0); Calcium 7.7 mg/dl (8.6-10.3); Creatinine Clr Calc Pharmacy 60.7 ml/min; Magnesium 2.2 mg/dl (1.7-2.4); Potassium 4.4 mmol/L (3.5-5.1); Total Protein 5.1 gm/dl (6.0-8.3); Troponin I High Sensitivity 44.3 pg/ml (0-14)
[2024-08-13 07:30] LABS: Toxic Granulation 1+
[2024-08-13 08:23] LABS: ALC (manual) 3.02 K/uL (1.2-3.4); ANC (manual) 15.92 K/uL (1.4-6.5); Lymphocytes # (manual) 3.02 K/uL (1.2-3.4); Monocytes # (manual) 0.81 K/uL (0.11-0.59); Neutrophils # (manual) 15.92 K/uL (1.40-6.50); Neutrophils % (manual) 79 %; Polychromasia 2+
[2024-08-13] MEDS: LORATADINE 10 MG TAB PO SCH (09:13)
--- NOTE | 2024-08-13 10:34 | Hospitalist Progress Note ---
Date of Service August 13, 2024 Assessment & Plan (1) Acute UTI (urinary tract infection): Plan: follow blood and urine cultures continue Rocephin Neumann cath in place (2) Thrombocytopenia: Plan: Suspect / chemotherapy Spoke with heme/onc, Dr. Mon - continue IVF, no need for transfusion at this time Peripheral smear + type/screen ordered Heme/onc consulted plt up from 23 to 31 today (3) Chemotherapy adverse reaction: Plan: patient with recurrent chemotherapy reactions of dehydration, weakness, decreas ed appetite requiring hospitalization IV hydration with 2L NSS in ED, continue fluid resuscitation with LR at 80 mL/hour overnight Supportive care with nausea control, Tylenol as needed PT/OT ordered heme/onc consulted - May need to consider further decreasing doses of immunotherapy agents or transitioning to better option (4) Hypokalemia: Plan: K+ 3.2, mag 1.7 3 bags K rider ordered +40 mEq p.o. KCl (5) Hypomagnesemia: Plan: 2G IV mag ordered (6) Transaminitis: Plan: AST 48, ALT 73, CK negative similar to recent admission - suspected chemotherapy related versus dehydration fenofibrate discontinued with PCP trend CMP Plan Patient is an 79-year-old female with past medical history of sarcoma s/p radiation undergoing current chemotherapy. patient was recently admitted from 07/04/20 to 07/25 for systemic inflammation response syndrome after receiving chemotherapy. Patient stated her doses were reduced after that admission, however after receiving double doses of chemotherapy last Friday, she has dehydration, weakness, and decreased appetite for several days. Patient was found to have a UTI and platelet count of 23 at time of admission. She is being admitted for IV antibiotics, IV fluids, IV electrolyte repletion, and hematology consult placed for thrombocytopenia. Admission and Anticipated Discharge Date Admission Date: August 12, 2024 Subjective No events overnight. Pt resting comfortably in bed. Review of Systems Review of Systems: CONST: Negative for fever, body aches and chills. HENT: Negative for neck pain/stiffness, headache, congestion, sore throat, swelling. EYES: Negative for discharge/pain or vision changes. RESP: Negative for cough/hemoptysis and shortness of breath. CV: Negative chest pain, difficulty breathing, palpitations. ABD: Negative pain, nausea, vomiting. : Negative increase frequency, dysuria, blood in urine or stool. MUSC: Negative for muscle aches, edema. SKIN: Negative rash, lesions/sores. NEURO: Negative headache, dizziness, weakness. Physical Exam Physical Exam: GENERAL APPEARANCE NAD, activity normal for age, well developed/ well nourished, no cyanosis, pallor, or diaphoresis. EYES lids/conjunctiva normal. EARS/NOSE/THROAT Mucous membranes moist, nares normal, lips/teeth normal uvula midline without oral pharyngeal erythema, exudate or swelling TMs normal bilaterally. No lymphangitis/lymphedema. HEAD/NECK normocephalic atraumatic, no facial trauma, neck is supple. RESPIRATORY respiratory effort normal, speaks in full sentences, no tripod position, no accessory muscle use. Lungs clear to auscultation without rhonchi, wheezes, rales CARDIAC Regular rate and rhythm, no edema. ABDOMINAL Soft, ND/NT. No evidence of fluid wave. No pulsatile masses on exam, r ebound tenderness, Lanier sign or pain over Mcburney's point. MUSCLES/EXTREMITIES No abnormal range of motion, no swelling. SKIN Warm, pink and dry. No rashes, dermatoses, petechiae or lesions. NEUROLOGICAL Speech is clear and appropriate. Normal level of consciousness. Gait and coordination are normal. 5/5 strength in all extremities. PSYCH Normal mood and affect. Judgement/competence is appropriate Results & Data Results & Data Vital Signs (Past 12 Hours) Vital Signs Temp Pulse Pulse Pulse Resp BP Pulse Ox 08/13/24 08:04 36.7 C 101 H 20 128/82 96 08/13/24 07:45 08/13/24 07:00 101 H 08/13/24 03:54 36.6 C 98 H 16 108/66 94 08/12/24 22:41 112 H O2 Del Method 08/13/24 08:04 Room Air 08/13/24 07:45 Room Air 08/13/24 07:00 08/13/24 03:54 Room Air 08/12/24 22:41 PG Care Time/CCT Total # of Minutes Spent Total Time Spent with Patient: Total time spent is greater than 50% in coordination of care (as documented) at patient's floor/unit and/or counseling patient: Coding Level of Care Code 32843 SUB INP/OBS CARE 2/35MIN Diagnoses Acute UTI (urinary tract infection) N39.0 Thrombocytopenia D69.6 Chemotherapy adverse reaction T45.1X5A Hypokalemia E87.6 Hypomagnesemia E83.42 Transaminitis R74.01
--- NOTE | 2024-08-13 16:58 | Oncology Consultation ---
Date of Consultation August 13, 2024 Assessment & Plan (1) Chemotherapy adverse reaction: Given that she had a pretty serious adverse reaction to gem Taxotere even after a 20% dose reduction, I will suspend gem Taxotere going forward for her metastatic sarcoma and we will try to utilize alternative strategies such as either pazopanib or lurbinectedin. At this point just recommend supportive care. Recommend IV fluids and management of her (2) Primary myxofibrosarcoma: sepsis and UTI. Will resume outpatient care once the patient is discharged. No other active intervention right now. History of Present Illness Reason for Consultation: Primary myxofibrosarcoma Attending Physician: Han Perez MD History of Present Illness 07/11/2022. Left thigh ultrasound due to localized mass. 8.2 x 3.3 x 5.4 cm hypoechoic mass in-like abnormality within the deep soft tissues, likely intramuscular, of the lateral left thigh at site of pain and swelling. This represents a mass and differential considerations include benign and malignant etiologies. MRI of the left thigh with and without contrast is recommended. 07/30/2022. MRI of the left thigh. Avidly enhancing 8.7 cm intramuscular mass of the vastus lateralis. Findings are suggestive of a nonspecific myxomatous lesion which includes benign and malignant etiologies. Surgical consultation recommended. No osseous involvement. 08/19/2022. Ultrasound-guided needle biopsy of left thigh mass. Pathology reveals positive for malignant cells, consistent with sarcoma. Seen on fine- needle aspiration. On core examination this is consistent with a myxofibrosarcoma. 08/26/2022. Chest CT. Less than 5 mm nodules in the lingula and left lower lobe, more likely benign. Otherwise no evidence of metastatic disease in the chest. 10/29/2022. Status post completion of radiation therapy. She received 5000 cGy. 11/07/2022. MRI of the left femur. 1. There is increasing size and heterogeneity of an avidly enhancing mass lesion centered in the left vastus lateralis muscle. This is consistent with the reported history of a sarcoma. 2. Mild surrounding infiltration and fluid is likely related to radiation treatment. 3. The lesion does not involve the underlying femur. 11/20/2022. CTA of the chest. Performed due to dyspnea and tachycardia. 1. There is no evidence of pulmonary embolus in the main, lobar, or segmental pulmonary arteries. 2. There is no airspace consolidation or pleural effusion. 3. An indeterminant 4 mm pulmonary nodule in the lingula is unchanged. 11/29/2022. Venous Doppler left lower extremity. Normal study, no evidence of deep or superficial vein thrombosis identified in the left common femoral, deep femoral, femoral popliteal, gastrocnemius, posterior tibial, peroneal, greater saphenous or small saphenous veins. 12/04/2022. Radical reexcision of left thigh myxofibrosarcoma sarcoma. Negative margins 03/13/2023. Chest CT. 1. There is no evidence of intrathoracic metastatic disease. 2. Low suspicion pulmonary nodules are unchanged. No new or enlarging pulmonary lesion is seen. 3. There is no airspace consolidation or pleural effusion. 03/13/2023. MRI left lower extremity. 1. Status post resection of the previously described avidly enhancing solid intramuscular mass of the lateral left thigh. Within the surgical bed, there is a peripherally enhancing 12 cm fluid collection suggestive of a seroma. 2. There is a new avidly enhancing 1.6 cm intramuscular lesion of the upper left thigh suggestive of a new site of disease. 3. Normal bone marrow signal. 03/28/2023. Ultrasound-guided biopsy. Path report reveals recurrent myxofibrosarcoma. 04/15/2023. Radical reexcision of recurrent sarcoma. Pathology report reveals recurrent myxofibrosarcoma, at least intermediate grade, grade 2-3, margins negative. This case was reviewed at tumor board. Recommendation for close follow-up. 02/09/2024, PET CT scan: 1. FDG PET/CT demonstrating intensely hypermetabolic and growing; currently 1.0 x 0.7 cm left upper lobe pulmonary nodule, highly suspicious for pulmonary metastatic is from progressive disease. Much less likely etiology is differential diagnosis include primary lung tumor and active inflammatory nodule 2. Multiple hypodense lesions in the previously treated surgery and radiation left thigh demonstrating moderate to intense metabolic activity 02/11/2024, left thigh core biopsy: Recurrent myxofibrosarcoma, intermediate grade 03/30/2024: Left ventricle EF of 60-65%. Normal left ventricular wall function. Adriamycin cycle 1 day 1: 04/14/2024 Adriamycin cycle 2-day 1: 05/05/2024 Adriamycin cycle 3-day 1: 06/03/2023 Femur MRI, 06/23/2024: IMPRESSION: Interval enlargement of 2 enhancing foci concerning for recurrence in this patient status post sarcoma excision. Stable postsurgical changes with a fluid collection which may represent a hematoma/seroma. CT chest, 06/30/2024: 1. Mild stable subpleural reticulation with the lung bases in lingula. Consistent with mild pulmonary fibrosis 2. Decrease in size of the nodule within the left upper lobe compared to prior study 3. Other nodules are stable 4. Other chronic/incidental findings are unchanged Gemcitabine docetaxel, cycle 1 day 1: 07/07/2024 Gemcitabine docetaxel, cycle 2-day 1 (with 20% dose reduction): 07/28/2024 The patient is a very pleasant 78-year-old woman who comes to the medical oncology clinic for recommendations regarding previously identified myxofibrosarcoma. This was first noticed in July 2022, underwent radiation with Dr. Rutherford August to September 2022 followed by complete resection in November 2022. She then had a focal recurrence in March 2023, was resected in April 2023. Now she has a mass in the left thigh and metastatic left lung nodule confirmed with biopsy. Her case was discussed at sarcoma tumor board at [facility] and recommendation was 2 cycles of chemotherapy. Currently she is doing well, reports no fever or chills. Her appetite is good, she is not losing any weight. the patient is a very pleasant 79-year-old woman very well-known to me with above-mentioned history who is currently on gemcitabine Taxotere. She comes back to [facility] with increased weakness, fatigue. She is tired and fatigued Allergies Allergy/AdvReac Type Severity Reaction Status Date / Time No Known Allergies Allergy Unknown Verified 08/12/24 20:34 Home Medications Medication Instructions Recorded Confirmed Type ibuprofen 200 mg tablet (Advil) 200 mg PO Q6H PRN Pain 10/07/22 08/12/24 History iron bisglycinate chelate 28 mg PO QAM 05/20/23 08/12/24 History cholecalciferol (vitamin D3) 25 25 mcg PO QAM 11/20/23 08/12/24 History mcg (1,000 unit) capsule cranberry concentrate-ascorbic 1 cap PO BID 03/16/24 08/12/24 History acid 4,200 mg-20 mg capsule prochlorperazine maleate 10 mg 10 mg PO Q6H PRN Nausea And 04/27/24 08/12/24 History tablet Vomiting acetaminophen 325 mg tablet 650 mg PO QID PRN Pain/Fever 07/23/24 08/12/24 History dexamethasone 4 mg tablet 8 mg PO UD 07/23/24 08/12/24 History olanzapine 2.5 mg tablet 2.5 mg PO UD 07/23/24 08/12/24 History Lactobacillus rhamnosus GG 10 1 cap PO DAILY 08/12/24 08/12/24 History billion cell capsule (Culturelle) loratadine-pseudoephedrine ER 10 1 tab PO DAILY 08/12/24 08/12/24 History mg-240 mg tablet,extended [id number] (Claritin-D 24 Hour) [id number]-rylmw 80 mcg-lutein 1 tab PO DAILY 08/12/24 08/12/24 History 166.7 mcg-herbal 66.7 mg chew tablet (Alive Premium Women's 50 Plus) Patient History Medical History Osteopenia Upper airway cough syndrome Primary myxofibrosarcoma dx spring 2022, left thigh; has mets to lung, one nodule in left lobe and 2 more nodules now in site of previously removed sarcomas; has also had 5 rounds of xrt (july-september 2022, total 5 weeks of treatments) Multiple pulmonary nodules CARLA nodule was bx and proven metastatic sarcoma Lymphedema ILD (interstitial lung disease) 'ILD/pulmonary fibrosis' per pulm note 01/22/24: 'increased reticular markings on the periphery of bilateral lower lobes with early honeycombing. No traction bronchiectasis', autoimmune workup ordered and was negative; per 03/15/24 note: 'Given that the patient's functional status is good, I do not think there is the need to start any antifibrotic's right now. Will keep a close eye on TLC as well as DLCO and if there is any significant decline in them then Ofev or Esbriet could be thought of. This was relayed to the patient and she is agreeable with the plan" Chronic cough Allergic rhinitis with postnasal drip History of uterine fibroid no sx needed Osteoarthritis Migraine hx, no pain more visual disturbance/flashes of light Hyperlipidemia Surgical History Port-A-Cath in place (04/12/24) Insertion Access Port to Left Subclavian with Fluoroscopy(Left) - [facility]yes [facility]eller, History of surgery 12/04/22 and 04/17/23, [facility], myxofibrosarcoma removed in left thigh muscle; 2 new nodules have now formed in same the spot Hx of cataract extraction right/left History of cholecystectomy Burns teeth removed H/O eye surgery RT/LEFT CORNEA "SCRAPING" SURGERY Family History Sister Breast cancer Cancer Pancreatic Other No family history of adverse response to anesthesia Social History Smoking Status: Never smoker Second Hand Exposure: Yes (hx); Do You Dip or Chew Tobacco: No; Hx Alcohol Use: No Hx Substance Use: No Preferred Language: Czech Communication Ability: Effective Visual Impairment: Partially Limited Hearing Ability: Normal Tire Installer Required: No Beliefs That Will Affect Care: Gnosticist Gnosticist Beliefs: Prodestant marital status: Current Living Situation: Alone current occupational status: retired How many Children do You have: 1 Feels Safe at Home: Yes Safety Concerns: Feels Safe At This Time Diet: regular during the past year weight has: increased > 10 lbs Assistive Devices: None Review of Systems Review of Systems: All systems reviewed & are unremarkable except as noted in HPI & below the patient is very tired and fatigued, Constitutional: as per Subjective / HPI Eyes: as per Subjective / HPI Ear, Nose, Mouth, Throat: as per Subjective / HPI Respiratory: as per Subjective / HPI Cardiovascular: as per Subjective / HPI Gastrointestinal: as per Subjective / HPI Genitourinary: as per Subjective / HPI Musculoskeletal: as per Subjective / HPI Integumentary: as per Subjective / HPI Neurologic: as per Subjective / HPI Psychiatric: as per Subjective / HPI Endocrine: as per Subjective / HPI Hematologic / Lymphatic: as per Subjective / HPI Allergy / Immunological: as per Subjective / HPI Physical Exam Constitutional: WD/WN, vitals as above Eyes: PERRL, conjunctivae normal, anicteric sclerae ENMT: external ear and nose normal, oropharynx normal Neck: trachea midline, no thyromegaly Respiratory: normal respiratory effort, lungs clear to auscultation Cardiovascular: RRR, no murmur, no edema Gastrointestinal (Abdomen): normal bowel sounds, soft, nontender, no hepatosplenomegaly Musculoskeletal: no cyanosis or clubbing, extremities motor strength 5/5 Skin: no rashes, warm and dry Results & Data Vital Signs (Past 12 Hours) Vital Signs Temp Pulse Pulse Pulse Resp BP BP 08/13/24 16:01 37.3 C 114 H 18 108/74 08/13/24 14:00 116 H 08/13/24 13:08 36.9 C 119 H 18 128/76 08/13/24 08:04 36.7 C 101 H 20 128/82 08/13/24 07:45 08/13/24 07:00 101 H Pulse Ox O2 Del Method 08/13/24 16:01 96 Room Air 08/13/24 14:00 08/13/24 13:08 95 Room Air 08/13/24 08:04 96 Room Air 08/13/24 07:45 Room Air 08/13/24 07:00
[2024-08-13] MEDS: cefTRIAXone SODIUM 2,000 MG/50 ML BAG IV SCH (17:18)
--- NOTE | 2024-08-13 21:52 | Electrocardiogram Report ---
Test Reason : Blood Pressure : */* mmHG Vent. Rate : 113 BPM Atrial Rate : 113 BPM P-R Int : 132 ms QRS Dur : 72 ms QT Int : 320 ms P-R-T Axes : 32 -20 72 degrees QTcB Int : 438 ms Sinus tachycardia Nonspecific T wave abnormality Poor R wave progression, consider anterior LA vs. lead placement vs. LVH Abnormal ECG When compared with ECG of 23-Jul-2024 12:14, No significant change was found Confirmed by Chu Mohan ([id number]) on 08/13/2024 9:52:40 PM Referred By: REFERRED SELF Confirmed By: Chu Mohan
[2024-08-14 06:41] LABS: Hematocrit (blood only) 26.4 % (37.0-47.0); Hemoglobin 8.4 g/dl (12.0-16.0); Mean Corpuscular Hemoglobin 31.3 pg (25.0-34.0); Mean Corpuscular Hgb Conc 31.8 g/dL (32.0-36.0); Mean Corpuscular Volume 98.5 fL (80.0-100.0); Mean Platelet Volume 10.6 fL (9.4-12.4); Nucleated RBC # (auto) 0.74 K/uL (0.00-0.12); Nucleated RBC % (auto) 2.9 %; Platelet Count 64 K/uL (130-400); RDW Standard Deviation 57.6 fL (36.4-46.3); Red Blood Count 2.68 M/uL (4.20-5.40); White Blood Count 25.81 K/ul (4.8-10.8)
[2024-08-14 06:52] LABS: Albumin Globulin Ratio 1.4 (0.9-2); Albumin Level 3.3 gm/dl (3.4-5.0); BUN Creatinine Ratio 7.8 (10-20); Bilirubin,Total 0.3 mg/dl (0.2-1.0); Calcium 8.2 mg/dl (8.6-10.3); Creatinine Clr Calc Pharmacy 51.9 ml/min; Globulin 2.3 gm/dl (2.5-4.0); Magnesium 2.1 mg/dl (1.7-2.4); Potassium 4.4 mmol/L (3.5-5.1); Total Protein 5.6 gm/dl (6.0-8.3)
[2024-08-14 07:44] LABS: ALC (manual) 2.32 K/uL (1.2-3.4); ANC (manual) 20.13 K/uL (1.4-6.5); Basophils # (manual) 0.26 K/uL (0-0.2); Basophils % (manual) 1 %; Dohle Bodies 1+; Lymphocytes # (manual) 2.32 K/uL (1.2-3.4); Lymphocytes % (manual) 9 %; Monocytes # (manual) 2.32 K/uL (0.11-0.59); Monocytes % (manual) 9 %; Myelocytes # (manual) 0.52 K/uL (0-0); Myelocytes % (manual) 2 %; Neutrophils # (manual) 20.13 K/uL (1.40-6.50); Neutrophils % (manual) 78 %; Polychromasia 1+; Promyelocytes # (manual) 0.26 K/uL (0-0); Promyelocytes % (manual) 1 %; Toxic Granulation 1+
[2024-08-14] MEDS: PROCHLORPERAZINE MALEATE 5 MG TAB PO PRN (08:09)
--- NOTE | 2024-08-14 09:26 | Hospitalist Progress Note ---
Date of Service August 14, 2024 Assessment & Plan (1) Acute UTI (urinary tract infection): Plan: follow blood and urine cultures negative so far continue Rocephin Neumann cath in place (2) Thrombocytopenia: Plan: Suspect / chemotherapy Spoke with heme/onc, Dr. Mon - continue IVF, no need for transfusion at this time Peripheral smear + type/screen ordered Heme/onc consulted plt up from 23 to 62 today (3) Chemotherapy adverse reaction: Plan: patient with recurrent chemotherapy reactions of dehydration, weakness, decreased appetite requiring hospitalization IV hydration with 2L NSS in ED, continue fluid resuscitation with LR at 80 mL/hour overnight Supportive care with nausea control, Tylenol as needed PT/OT ordered heme/onc consulted - Plan to change immunotherapy agents no additional treatments at this time.. (4) Hypokalemia: Plan: K+ 3.2, mag 1.7 3 bags K rider ordered +40 mEq p.o. KCl (5) Hypomagnesemia: Plan: 2G IV mag ordered (6) Transaminitis: Plan: AST 48, ALT 73, CK negative similar to recent admission - suspected chemotherapy related versus dehydration fenofibrate discontinued with PCP trend CMP Plan Patient is an 79-year-old female with past medical history of sarcoma s/p radiation undergoing current chemotherapy. patient was recently admitted from 07/04/20 to 07/25 for systemic inflammation response syndrome after receiving chemotherapy. Patient stated her doses were reduced after that admission, however after receiving double doses of chemotherapy last Friday, she has dehydration, weakness, and decreased appetite for several days. Patient was found to have a UTI and platelet count of 23 at time of admission. She is being admitted for IV antibiotics, IV fluids, IV electrolyte repletion, and hematology consult placed for thrombocytopenia. Plan for d/c 08/15/24 Admission and Anticipated Discharge Date Admission Date: August 12, 2024 Subjective No events overnight. Pt resting comfortably in bed. States she feels better this am. Requesting to stay an additional day due to weakness. Review of Systems Review of Systems: CONST: Negative for fever, body aches and chills. HENT: Negative for neck pain/stiffness, headache, congestion, sore throat, swelling. EYES: Negative for discharge/pain or vision changes. RESP: Negative for cough/hemoptysis and shortness of breath. CV: Negative chest pain, difficulty breathing, palpitations. ABD: Negative pain, nausea, vomiting. : Negative increase frequency, dysuria, blood in urine or stool. MUSC: Negative for muscle aches, edema. SKIN: Negative rash, lesions/sores. NEURO: Negative headache, dizziness, weakness. Physical Exam Physical Exam: GENERAL APPEARANCE NAD, activity normal for age, well developed/ well nourished, no cyanosis, pallor, or diaphoresis. EYES lids/conjunctiva normal. EARS/NOSE/THROAT Mucous membranes moist, nares normal, lips/teeth normal uvula midline without oral pharyngeal erythema, exudate or swelling TMs normal bilaterally. No lymphangitis/lymphedema. HEAD/NECK normocephalic atraumatic, no facial trauma, neck is supple. RESPIRATORY respiratory effort normal, speaks in full sentences, no tripod position, no accessory muscle use. Lungs clear to auscultation without rhonchi, wheezes, rales CARDIAC Regular rate and rhythm, no edema. ABDOMINAL Soft, ND/NT. No evidence of fluid wave. No pulsatile masses on exam, rebound tenderness, Lanier sign or pain over Mcburney's point. MUSCLES/EXTREMITIES No abnormal range of motion, no swelling. SKIN Warm, pink and dry. No rashes, dermatoses, petechiae or lesions. NEUROLOGICAL Speech is clear and appropriate. Normal level of consciousness. Gait and coordination are normal. 5/5 strength in all extremities. PSYCH Normal mood and affect. Judgement/competence is appropriate Results & Data Results & Data Vital Signs (Past 12 Hours) Vital Signs Temp Pulse Pulse Resp BP Pulse Ox O2 Del Method 08/14/24 07:35 Room Air 08/14/24 07:28 36.8 C 99 H 20 111/70 93 Room Air 08/14/24 05:43 100 H 08/14/24 03:36 36.5 C 102 H 16 101/61 94 Room Air 08/13/24 23:02 37.1 C 110 H 16 114/64 91 Room Air 08/13/24 22:26 112 H PG Care Time/CCT Total # of Minutes Spent Total Time Spent with Patient: Total time spent is greater than 50% in coordination of care (as documented) at patient's floor/unit and/or counseling patient: Coding Level of Care Code 51279 SUB INP/OBS CARE 2/35MIN Diagnoses Acute UTI (urinary tract infection) N39.0 Thrombocytopenia D69.6 Chemotherapy adverse reaction T45.1X5A Hypokalemia E87.6 Hypomagnesemia E83.42 Transaminitis R74.01
--- NOTE | 2024-08-15 09:28 | Hospitalist Progress Note ---
Date of Service August 15, 2024 Assessment & Plan (1) Acute UTI (urinary tract infection): Plan: follow blood and urine cultures negative so far continue Rocephin- can d/c upon discharge Neumann cath in place (2) Thrombocytopenia: Plan: Suspect 2/ chemotherapy Spoke with heme/onc, Dr. Mon - continue IVF, no need for transfusion at this time Peripheral smear + type/screen ordered Heme/onc consulted plt up from 23 to 62 today (3) Chemotherapy adverse reaction: Plan: patient with recurrent chemotherapy reactions of dehydration, weakness, decreased appetite requiring hospitalization IV hydration with 2L NSS in ED, continue fluid resuscitation with LR at 80 mL/hour overnight Supportive care with nausea control, Tylenol as needed Heme/onc consulted - Plan to change immunotherapy agents no additional treatments at this time.. (4) Hypokalemia: Plan: K+ 3.2, mag 1.7 3 bags K rider ordered +40 mEq p.o. KCl (5) Hypomagnesemia: Plan: 2G IV mag ordered (6) Transaminitis: Plan: AST 48, ALT 73, CK negative similar to recent admission - suspected chemotherapy related versus dehydration fenofibrate discontinued with PCP trend CMP Plan Patient is an 79-year-old female with past medical history of sarcoma s/p radiation undergoing current chemotherapy. patient was recently admitted from 07/04/20 to 07/25 for systemic inflammation response syndrome after receiving chemotherapy. Patient stated her doses were reduced after that admission, however after receiving double doses of chemotherapy last Friday, she has dehydration, weakness, and decreased appetite for several days. Patient was found to have a UTI and platelet count of 23 at time of admission. She is being admitted for IV antibiotics, IV fluids, IV electrolyte repletion, and hematology consult placed for thrombocytopenia. PT/OT ordered, recommended home with PT, however patient would like rehab placement. Spoke with stephanie rogers and patient is agreeing to [facility]. D/C pending authorization. Admission and Anticipated Discharge Date Admission Date: August 12, 2024 Subjective No events overnight. Pt resting comfortably in bed. States she feels better this am. Pt requested rehab placement, feels she would benefit from additional therapy in gaining strength. Review of Systems Review of Systems: CONST: Negative for fever, body aches and chills. HENT: Negative for neck pain/stiffness, headache, congestion, sore throat, swelling. EYES: Negative for discharge/pain or vision changes. RESP: Negative for cough/hemoptysis and shortness of breath. CV: Negative chest pain, difficulty breathing, palpitations. ABD: Negative pain, nausea, vomiting. : Negative increase frequency, dysuria, blood in urine or stool. MUSC: Negative for muscle aches, edema. SKIN: Negative rash, lesions/sores. NEURO: Negative headache, dizziness, weakness. Physical Exam Physical Exam: GENERAL APPEARANCE NAD, activity normal for age, well developed/ well nourished, no cyanosis, pallor, or diaphoresis. EYES lids/conjunctiva normal. EARS/NOSE/THROAT Mucous membranes moist, nares normal, lips/teeth normal uvula midline without oral pharyngeal erythema, exudate or swelling TMs normal bilaterally. No lymphangitis/lymphedema. HEAD/NECK normocephalic atraumatic, no facial trauma, neck is supple. RESPIRATORY respiratory effort normal, speaks in full sentences, no tripod position, no accessory muscle use. Lungs clear to auscultation without rhonchi, wheezes, rales CARDIAC Regular rate and rhythm, no edema. ABDOMINAL Soft, ND/NT. No evidence of fluid wave. No pulsatile masses on exam, rebound tenderness, Lanier sign or pain over Mcburney's point. MUSCLES/EXTREMITIES No abnormal range of motion, no swelling. SKIN Warm, pink and dry. No rashes, dermatoses, petechiae or lesions. NEUROLOGICAL Speech is clear and appropriate. Normal level of consciousness. Gait and coordination are normal. 5/5 strength in all extremities. PSYCH Normal mood and affect. Judgement/competence is appropriate Results & Data Results & Data Vital Signs (Past 12 Hours) Vital Signs Temp Pulse Pulse Resp BP Pulse Ox O2 Del Method 08/15/24 07:39 36.7 C 97 H 20 111/68 97 Room Air 08/15/24 07:31 Room Air 08/15/24 05:56 106 H 08/15/24 03:31 36.7 C 107 H 18 105/64 94 Room Air 08/14/24 23:53 36.8 C 99 H 18 116/69 96 Room Air 08/14/24 22:04 97 H PG Care Time/CCT Total # of Minutes Spent Total Time Spent with Patient: Total time spent is greater than 50% in coordination of care (as documented) at patient's floor/unit and/or counseling patient: Coding Level of Care Code 44463 SUB INP/OBS CARE 235MIN Diagnoses Acute UTI (urinary tract infection) N39.0 Thrombocytopenia D69.6 Chemotherapy adverse reaction T45.1X5A Hypokalemia E87.6 Hypomagnesemia E83.42 Transaminitis R74.01
[2024-08-15] MEDS: SODIUM CHLORIDE 0.9% 1,000 ML IV SCH (16:10)
[2024-08-16 07:52] VITALS: RESP 18
[2024-08-16 09:01] LABS: Hematocrit (blood only) 27.4 % (37.0-47.0); Hemoglobin 8.6 g/dl (12.0-16.0); Mean Corpuscular Hemoglobin 31.6 pg (25.0-34.0); Mean Corpuscular Hgb Conc 31.4 g/dL (32.0-36.0); Mean Corpuscular Volume 100.7 fL (80.0-100.0); Mean Platelet Volume 9.6 fL (9.4-12.4); Nucleated RBC # (auto) 0.25 K/uL (0.00-0.12); Nucleated RBC % (auto) 1.8 %; Platelet Count 149 K/uL (130-400); RDW Coefficient of Variation 17.3 % (11.5-14.5); RDW Standard Deviation 60.5 fL (36.4-46.3); Red Blood Count 2.72 M/uL (4.20-5.40); White Blood Count 13.58 K/ul (4.8-10.8)
[2024-08-16 09:21] LABS: BUN Creatinine Ratio 10.5 (10-20); Calcium 8.2 mg/dl (8.6-10.3); Creatinine Clr Calc Pharmacy 52.9 ml/min; Potassium 4.2 mmol/L (3.5-5.1)
[2024-08-16 09:29] LABS: Basophils # (auto) 0.09 K/uL (0.00-0.20); Basophils % (auto) 0.7 %; Eosinophils # (auto) 0.07 K/uL (0.00-0.50); Eosinophils % (auto) 0.5 %; Immature Granulocytes # (auto) 0.82 K/uL (0.01-0.20); Lymphocytes # (auto) 2.41 K/uL (1.20-3.40); Lymphocytes % (auto) 17.7 %; Monocytes # (auto) 2.04 K/uL (0.11-0.59); Neutrophils # (auto) 8.15 K/uL (1.40-6.50); Neutrophils % (auto) 60.1 %; Toxic Granulation 1+
--- NOTE | 2024-08-16 10:25 | Discharge Summary ---
Discharge Summary Date of Service August 16, 2024 Principal Dx & Hospital Course #1 = Principal Diagnosis (1) Acute UTI (urinary tract infection): Urine culture nondiagnostic. Treated with intravenous Rocephin while hospitalized. Neumann catheter is removed at discharge. (2) Thrombocytopenia: Suspect 2/2 chemotherapy. Hme/onc, Dr. Mon recommends continue IVF, no need for transfusion at this time. (3) Chemotherapy adverse reaction: patient with recurrent chemotherapy reactions of dehydration, weakness, decreased appetite requiring hospitalization. Treated with IV fluids while hospitalized. Supportive care. Appreciate oncology consultation and recommendations (4) Hypokalemia: Corrected with parenteral replacement (5) Hypomagnesemia: Corrected with parenteral replacement (6) Transaminitis: similar to recent admission - suspected chemotherapy related versus dehydration. Fenofibrate discontinued by PCP Plan Discharge to [facility] today, August 16 Admission HPI Per Admitting Provider Patient is an 79-year-old female with past medical history of sarcoma s/p radiation undergoing current chemotherapy. patient was recently admitted from 07/04/20 to 07/25 for systemic inflammation response syndrome after receiving chemotherapy. Patient stated her doses were reduced after that admission, however after receiving double doses of chemotherapy last Friday, she has dehydration, weakness, and decreased appetite for several days. Patient was found to have a UTI and platelet count of 23 at time of admission. She is being admitted for IV antibiotics, IV fluids, IV electrolyte repletion, and hematology consult placed for thrombocytopenia. Patient seen at bedside. She stated that she alternates between chemotherapy every other week. 1 week she has 1 drug, the next week she has to. It is when she has 2 drugs will that she has severe symptoms. when she was admitted in July, they reduced her doses by 20%, however after receiving them last Friday she still has weakness, dehydration, and poor appetite. She also endorses decrease in urination but believes it secondary to dehydration. she endorses chills however chronic. She also endorses diarrhea, however chronic. She does have new onset burning pain in her feet, she typically gets burning in her hands with the chemotherapy. She also stated her hands are more dry and with a mild red rash. Patient denies headache, dizziness, lightheadedness,dyspnea, dyspnea on exertion, chest pain, abdominal pain, nausea, vomiting, dysuria, hematuria. She has chronic left lower extremity edema due to lymphoma. She stated she has 2 appointments in [place] next week that she would like to try to make it today. She stated she typically does well in regards to nausea with chemotherapy, she just takes medication as needed. Regarding her home medications, she took them today. She stated her PCP recently discontinued her cholesterol medication because it was thought to be co ntributing to her chronic diarrhea. She wishes to be full code. Spoke with morgue keeper, Dr. Mon. He just recommended fluids and antiemetics. No need for transfusion at time of admission. Discharge Plan Discharge Items Patient Disposition: Transfer Inpatient Rehab Fac Reason For Visit: UTI, THROMBOCYTOPENIA Discharge Diagnosis: UTI, generalized weakness, hypokalemia, hypomagnesemia, thrombocytopenia due to chemotherapy Activity: Resume your previous activity Non-emergency contact: Primary Care Provider and Oncologist Call non-emergency contact if: your symptoms worsen Follow-up/Referrals: Criselda Guzman [Primary Care Provider] - Diet: Regular Addtl Attending Provider Instructions: All medications remain the same. See primary care provider and oncologist as soon as possible after discharge from [facility] Pending Studies at Discharge: No Stand-Alone Forms: My [facility] Skilled Items Patient informed of condition?: Yes DNR: Yes Discharge Level of Care: Acute rehab Communicable Disease: No Discharge Prognosis: Stable Lines: None Urinary Catheter: No Medications and DC Order Prescriptions: Continued ibuprofen [Advil] 200 mg tablet 200 mg PO Q6H PRN (Reason: Pain) cholecalciferol (vitamin D3) 25 mcg (1,000 unit) capsule 25 mcg PO QAM iron bisglycinate chelate 28 mg iron capsule 28 mg PO QAM cranberry conc-ascorbic acid 4,200-20 mg capsule 1 cap PO BID prochlorperazine maleate 10 mg tablet 10 mg PO Q6H PRN (Reason: Nausea And Vomiting) acetaminophen 325 mg Tablet 650 mg PO QID PRN (Reason: Pain/Fever) olanzapine 2.5 mg Tablet 2.5 mg PO UD Rx Instructions: Take 2.5mg by mouth starting the day before chemo, the day of and the day after. dexamethasone 4 mg Tablet 8 mg PO UD Rx Instructions: Take 8mg by mouth twice daily starting the day before, during and after chemo. Alive Premium Women's 50 Plus 80 mcg-166.7 mcg-66.7 mg Tablet,Chewable 1 tab PO DAILY Culturelle 10 billion cell Capsule 1 cap PO DAILY Claritin-D 24 Hour 10-240 mg Tablet Extended Release 24 Hr 1 tab PO DAILY Discharge Orders: Discharge Order (Routine); Ordered 08/16/24 Ordered By: Alex Hillman Admission Data Admit Date/Time: 08/12/24 20:07 Attending Provider: Alex Hillman Admit Provider: Han Perez Primary Care Provider: Criselda Guzman Other Providers: Han Perez; Carlos Mon; [facility] Hospital Stay Data Consultations 08/12/24 19:07 ED Decision to Admit Stat 08/12/24 19:50 Consult Hematology Routine Pending Results Patient Have Any Pending Studies at Discharge: No Discharge Instructions Given to Patient (Per Discharging Provider) All medications remain the same. See primary care provider and oncologist as soon as possible after discharge from [facility] Total Time Total Time Spent Total Time Spent (In Minutes): 45 minutes Coding Level of Care Code 82923 INP/OBS DISCH >30 MIN Diagnoses Acute UTI (urinary tract infection) N39.0 Thrombocytopenia D69.6 Chemotherapy adverse reaction T45.1X5A Hypokalemia E87.6 Hypomagnesemia E83.42 Transaminitis R74.01
[2024-08-16 11:34] VITALS: BP 129/74; PULSE 118; TEMP 98.6; O2SAT 97
--- NOTE | 2024-08-16 14:03 | Electrocardiogram Report ---
Test Reason : Blood Pressure : */* mmHG Vent. Rate : 117 BPM Atrial Rate : 117 BPM P-R Int : 140 ms QRS Dur : 70 ms QT Int : 328 ms P-R-T Axes : 21 -26 47 degrees QTcB Int : 457 ms Sinus tachycardia Poor R wave progression, consider anterior FL vs. lead placement vs. LVH When compared with ECG of 12-Aug-2024 17:31, No significant change was found Confirmed by Jose A Duran ([id number]) on 08/16/2024 2:02:57 PM Referred By: REFERRED SELF Confirmed By: Jose A Duran
== END 2024-08-16 14:03 | DRG 690 ==
LOC: SUATTDRO → ED 16:50 → SUATTDRO 20:07 → 2W 20:07

== ENCOUNTER 2024-12-24 14:45 | Inpatient (IN) ==
--- NOTE | 2024-12-24 15:04 | Emergency Department Note ---
Impression & Plan Orthostatic hypotension, Hepatitis, Elevated TSH ED Provider Note Name: DOROTHY AGUILAR Age: 79 Sex: Female Arrives Via: Walk-In Informant: Patient ED Provider: Damon Schmid MD Chief Complaint: Weakness Impression: As per impressions above Medical Decision Making: Very pleasant 79-year-old female arrives for evaluation of severe weakness. While laying in bed or sitting on the side of her bed she states she feels quite well but upon standing she gets very lightheaded and feels like she will fall back to the ground. On examination patient is neuro intact with NIH of 0. No acute concerning findings by initial exam other than a bit pale. She was given some IV fluids as was hypotensive with standing. Laboratory workup does show a mildly elevated AST/ALT along with TSH. She had recently started a new chemo med by mouth and stopped yesterday. I suspect this is the cause of the hepatitis and may be the cause of her symptoms. After further fluid bolus though she continues to have some symptomatic orthostasis however blood pressure has at least improved. Given her persistent symptoms and my concern that she may be harmed if she were to fall at home I think hospitalization is reasonable and thus hospitalist consulted. I do not feel patient has any clear evidence of stroke. She has no headache or neurologic deficits and thus with a CT head normal just a month ago I do not feel that we necessarily need to repeat it at this time. Triage/Nursing Notes reviewed by Me External Chart Review by me: I reviewed the patient's rad onc visit from 11/24/2024 to discuss past medical history and management. Differential:Infection, dehydration, metabolic abnormality, hypo/hyperglycemia, electrolyte disturbance, anemia, hypoxia, cardiac sources, intracerebral event, toxicologic, neurologic, as well as other pathologies. Vital Signs: reviewed and remarkable for hypotension with standing Interventions: 1.5 L normal saline bolus IV Labs:ED labs Reviewed by me and remarkable for modestly elevated LFTs and thyroid EKG:As per my interpretation. Indication weakness. Normal sinus rhythm 63 bpm QTc of 417. There is no ectopy nor ischemia. Flattened T waves are noted however they were inverted in previous EKG. Compared to previous EKG December 24, 2024 no significant concern Cardiac/Tele Monitoring: Cardiac Monitoring: An Order was placed for continuous cardiac monitoring. The monitor shows a rate of 60 with a normal sinus rhythm. Consults:Discussed with Dr. Bustamante of the hospitalist service who will further evaluate and manage Plan: Disposition:Hospitalization. Condition: Fair History of Present Illness: 79-year-old female arrives for evaluation of weakness. 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 It had spread to her lungs at one point but that is resolved. She started a new round of chemotherapy a little over a week ago. Several days after starting she started to develop worsening weakness and fatigue. Notes while she lays flat she does not have much in the way of symptoms. She has pretty much lost her entire appetite but is forcing herself to eat every few. For nausea she takes Zofran with improvement. However anytime she stands up she gets very lightheaded and weak and has to sit back down. She states this is significantly impacting her ability to get around the house. She does note some small amounts of blood sometimes in her stool but no grossly bloody bowel movements. Denies any urinary symptoms. Has left leg swelling for several years but no significant change. Denies any shortness of breath, chest pain, syncope. Having no headaches or neurologic deficits. Denies having had symptoms like this previously. Past Medical History:See Below Home Medications:See Below Allergies:nkda Vitals:Blood Pressure: 108/78, Pulse 88, RR 17, T 36.9C, O2 98% on RA Physical Exam: GENERAL: Patient is tired appearing and in minimal distress. Pale appearings RESPIRATORY: No dyspnea. Clear to auscultation and equal bilaterally. CARDIOVASCULAR: Regular rate and rhythm.No murmur appreciated. GASTROINTESTINAL: Abdomen soft, non-tender, no peritonitis. EXTREMITIES: Normal motion all extremities, no cyanosis, no edema. NEUROLOGIC: Alert and oriented. No focal neurologic deficits appreciated SKIN: No rash, no jaundice, no diaphoresis. PSYCH: Appropriate GCS: 15 ED Course: Times/Reassessments: Multiple repeat evaluations of patient. While her blood pressure is improved with IV fluids she continues to get significant symptoms with standing. Agreeable to hospitalization for further workup and evaluation Damon Schmid MD Past Med/Surg History Problem List (Updated 12/24/24 @ 18:29 by Damon Schmid MD) Elevated TSH (Acute) Hepatitis (Acute) Orthostatic hypotension (Acute) Hypomagnesemia Hypokalemia Chemotherapy adverse reaction Transaminitis (Acute) Elevated troponin (Acute) Thrombocytopenia (Acute) Sepsis (Acute) SIRS (systemic inflammatory response syndrome) ILD (interstitial lung disease) Allergic rhinitis with postnasal drip Chronic cough Upper airway cough syndrome Multiple pulmonary nodules Lymphedema Mass of left thigh Encounter for pre-operative examination Medical History Primary myxofibrosarcoma Thrombocytopenia Elevated transaminase level Lactic acidosis Leukocytosis Elevated troponin Osteopenia Upper airway cough syndrome Primary myxofibrosarcoma dx spring 2022, left thigh; has mets to lung, one nodule in left lobe and 2 more nodules now in site of previously removed sarcomas; has also had 5 rounds of xrt (july-september 2022, total 5 weeks of treatments) Multiple pulmonary nodules CARLA nodule was bx and proven metastatic sarcoma Lymphedema ILD (interstitial lung disease) 'ILD/pulmonary fibrosis' per pulm note 01/22/24: 'increased reticular markings on the periphery of bilateral lower lobes with early honeycombing. No traction bronchiectasis', autoimmune workup ordered and was negative; per 03/15/24 note: 'Given that the patient's functional status is good, I do not think there is the need to start any antifibrotic's right now. Will keep a close eye on TLC as well as DLCO and if there is any significant decline in them then Ofev or Esbriet could be thought of. This was relayed to the patient and she is agreeable with the plan" Chronic cough Allergic rhinitis with postnasal drip History of uterine fibroid no sx needed Osteoarthritis Migraine hx, no pain more visual disturbance/flashes of light Hyperlipidemia Surgical History Port-A-Cath in place (04/12/24) Insertion Access Port to Left Subclavian with Fluoroscopy(Left) - Reyes Moeller DO History of surgery 12/04/22 and 04/17/23, C, myxofibrosarcoma removed in left thigh muscle; 2 new nodules have now formed in same the spot Hx of cataract extraction right/left History of cholecystectomy [place] teeth removed H/O eye surgery RT/LEFT CORNEA "SCRAPING" SURGERY Family History Sister Breast cancer Cancer Pancreatic Other No family history of adverse response to anesthesia Social History Smoking Status: Never smoker Second Hand Exposure: Yes (hx); Do You Dip or Chew Tobacco: No; Hx Alcohol Use: No Hx Substance Use: No Preferred Language: Bengali Communication Ability: Effective Visual Impairment: Partially Limited Hearing Ability: Normal Fusing Machine Feeder Required: No Beliefs That Will Affect Care: Congregation Congregation Beliefs: Prodestant marital status: Current Living Situation: Alone current occupational status: retired How many Children do You have: 1 Feels Safe at Home: Yes Diet: regular during the past year weight has: increased > 10 lbs Assistive Devices: None Allergies Allergies Allergy/AdvReac Type Severity Reaction Status Date / Time No Known Allergies Allergy Unknown Verified 12/24/24 17:51 Home Meds Home Medications Medication Instructions Recorded Confirmed cholecalciferol (vitamin D3) 25 25 mcg PO QAM 11/20/23 12/24/24 mcg (1,000 unit) capsule cranberry concentrate-ascorbic 1 cap PO BID 03/16/24 12/24/24 acid 4,200 mg-20 mg capsule acetaminophen 325 mg tablet 650 mg PO QID PRN Pain/Fever 07/23/24 12/24/24 Lactobacillus rhamnosus GG 10 1 cap PO DAILY 08/12/24 12/24/24 billion cell capsule (Culturelle) [id number] 80 mcg-lutein 1 tab PO DAILY 08/12/24 12/24/24 166.7 mcg-herbal 66.7 mg chew tablet (Alive Premium Women's 50 Plus) apixaban 2.5 mg tablet (Eliquis) 2.5 mg PO BID 12/24/24 12/24/24 ferrous sulfate 27 mg iron tablet 27 mg PO DAILY 12/24/24 12/24/24 loratadine 10 mg tablet (Claritin) 10 mg PO DAILY 12/24/24 12/24/24 metoprolol tartrate 50 mg tablet 50 mg PO BID 12/24/24 12/24/24 ondansetron HCl 4 mg tablet 0 mg PO DIRECTED PRN 12/24/24 12/24/24 NAUSEA/VOMITING pazopanib 200 mg tablet 200 mg PO DAILY 12/24/24 12/24/24 Results & Data (ED) Vital Signs Vital Signs - 24 hr 12/24/24 14:48 12/24/24 15:05 12/24/24 15:05 Temperature 36.9 C Temperature Source Temporal Artery Scan Pulse Rate - Lying 67 Pulse Rate - Sitting 82 Pulse Rate - Standing 88 Pulse Rate 88 96 H Respiratory Rate 17 Blood Pressure - Lying 128/71 Blood Pressure - Sitting 92/79 L Blood Pressure- Standing 101/57 L Blood Pressure 108/78 Blood Pressure Mean 88 Pulse Oximetry 98 Oxygen Delivery Method Room Air Sepsis Recent Fever Within 48 Hours No Sepsis New/Unexplained Change in Mental Status N/A Sepsis Action Taken by Nursing No Action Required 12/24/24 16:22 12/24/24 17:41 Temperature Temperature Source Pulse Rate - Lying 67 68 Pulse Rate - Sitting 83 75 Pulse Rate - Standing 90 84 Pulse Rate Respiratory Rate Blood Pressure - Lying 149/87 H 183/86 H Blood Pressure - Sitting 130/76 159/81 H Blood Pressure- Standing 90/75 L 125/75 Blood Pressure Blood Pressure Mean Pulse Oximetry Oxygen Delivery Method Sepsis Recent Fever Within 48 Hours Sepsis New/Unexplained Change in Mental Status Sepsis Action Taken by Nursing Laboratory Data 12/24/24 15:25 12/24/24 15:25 Lab Results 12/24/24 12/24/24 Range/Units 15:25 17:22 WBC 6.75 (4.8-10.8) K/ul RBC 4.49 (4.20-5.40) M/uL Hgb 13.6 (12.0-16.0) g/dl Hct 40.2 (37.0-47.0) % MCV 89.5 (80.0-100.0) fL MCH 30.3 (25.0-34.0) pg MCHC 33.8 (32.0-36.0) g/dL RDW Std Deviation 61.1 H (36.4-46.3) fL RDW Coeff of Shavon 19.0 H (11.5-14.5) % Plt Count 97 L (130-400) K/uL MPV 8.9 L (9.4-12.4) fL Immature Gran % (Auto) 0.1 % Neut % (Auto) 50.3 % Lymph % (Auto) 36.0 % [place] % (Auto) 12.3 % Eos % (Auto) 0.7 % Baso % (Auto) 0.6 % Neut # (Auto) 3.39 (1.40-6.50) K/uL Lymph # (Auto) 2.43 (1.20-3.40) K/uL [place] # (Auto) 0.83 H (0.11-0.59) K/uL Eos # (Auto) 0.05 (0.00-0.50) K/uL Baso # (Auto) 0.04 (0.00-0.20) K/uL Immature Gran # (Auto) 0.01 (0.01-0.20) K/uL Sodium 137 (136-145) mmol/L Potassium 4.0 (3.5-5.1) mmol/L Chloride 103 (98-107) mmol/L Carbon Dioxide 24 (21-32) mmol/L Anion Gap 10 (3-11) BUN 20 (6-23) mg/dl Creatinine 0.76 (0.6-1.2) mg/dl Est Cr Clr Drug Dosing 50.2 ml/min eGFR 79.16 BUN/Creatinine Ratio 26.3 H (10-20) Glucose 100 H (70-99(Fasting)) mg/dl Calcium 9.5 (8.6-10.3) mg/dl Total Bilirubin 0.7 (0.2-1.0) mg/dl Direct Bilirubin 0.1 (0-0.2) mg/dl AST 95 H (13-39) U/L ALT 198 H (7-52) U/L Alkaline Phosphatase 89 (34-104) U/L Troponin I High Sens 10.3 (0-14) pg/ml Total Protein 7.1 (6.0-8.3) gm/dl Albumin 3.6 (3.4-5.0) gm/dl TSH 26.641 H (0.300-4.500) uIu/ml Free T4 0.65 (0.61-1.60) ng/dl Urine Color Yellow Urine Appearance Clear (Clear) Urine pH 6.5 (4.5-7.5) Ur Specific [place] 1.006 (1.000-1.030) Urine Protein Negative (Negative) Urine Glucose (UA) Negative (Negative) Urine Ketones Negative (Negative) Urine Blood Negative (Negative) Urine Nitrite Negative (Negative) Urine Bilirubin Negative (Negative) Urine Urobilinogen Negative (Negative) Ur Leukocyte Esterase Trace H (Negative) Urine WBC (Auto) 0-5 (0-5) /hpf Urine RBC (Auto) 0-2 (0-2) /hpf U Hyaline Cast (Auto) 0-2 (0-2) /lpf U Epithel Cells (Auto) 0-2 (0-2) /hpf Urine Bacteria (Auto) None Seen (None Seen) Urine Comment Administered Medications Discontinued Medications Sodium Chloride (Nss) 500 mls @ 999 mls/hr IV .Q31M ONE Stop: 12/24/24 15:30 Last Infusion: 12/24/24 15:56 Dose: Infused Documented By: Admin: 12/24/24 15:25 Dose: 999 mls/hr Documented By: MOHINDER Sodium Chloride (Nss) 1,000 mls @ 999 mls/hr IV .Q1H1M ONE Stop: 12/24/24 17:23 Last Infusion: 12/24/24 17:29 Dose: Infused Documented By: Admin: 12/24/24 16:28 Dose: 999 mls/hr Documented By: MOHINDER Imaging Data Radiologist's Impression: Chest X-Ray 12/24/24 15:00 XR chest 1V portable CLINICAL HISTORY: weakness COMPARISON STUDY: 11/13/2024 FINDINGS: Stable chest port. Heart size and pulmonary vasculature are normal. No consolidation or pleural effusion seen. No pneumothorax. IMPRESSION: No acute findings. ACT 112: Negative or not required by law. Electronically signed by: Alvaro Flood M.D. 12/24/2024 3:19 PM Discharge Plan Visit Data Chief Complaint: Cardiac Assessment Stated Complaint: ABNORMAL EKG, CHEST TIGHTNESS,LIGHTHEADED ED Provider: Damon Schmid Discharge Problem: Orthostatic hypotension, Hepatitis, Elevated TSH Patient Disposition: Admitted As Inpatient Condition: Fair Forms Stand Alone Forms: My [facility] Prescriptions Prescriptions: No Action cholecalciferol (vitamin D3) 25 mcg (1,000 unit) capsule 25 mcg PO QAM cranberry conc-ascorbic acid 4,200-20 mg capsule 1 cap PO BID ondansetron HCl [Zofran] 4 mg Tablet 0 mg PO DIRECTED PRN (Reason: NAUSEA/VOMITING) Rx Instructions: PT UNSURE OF STRENGTH, UNABLE TO VERIFY metoprolol tartrate 50 mg tablet 50 mg PO BID loratadine [Claritin] 10 mg Tablet 10 mg PO DAILY ferrous sulfate 27 mg iron Tablet 27 mg PO DAILY pazopanib 200 mg tablet 200 mg PO DAILY Rx Instructions: PER PT " TOLD HER TO STOP, 12/24/24". Eliquis 2.5 mg tablet 2.5 mg PO BID acetaminophen 325 mg Tablet 650 mg PO QID PRN (Reason: Pain/Fever) Alive Premium Women's 50 Plus 80 mcg-166.7 mcg-66.7 mg Tablet,Chewable 1 tab PO DAILY Culturelle 10 billion cell Capsule 1 cap PO DAILY Referrals Referrals: Criselda Guzman [Primary Care Provider] -
--- NOTE | 2024-12-24 15:20 | XRay Report ---
XR chest 1V portable CLINICAL HISTORY: weakness COMPARISON STUDY: 11/13/2024 FINDINGS: Stable chest port. Heart size and pulmonary vasculature are normal. No consolidation or ple ural effusion seen. No pneumothorax. IMPRESSION: No acute findings. ACT 112: Negative or not required by law. Electronically signed by: Alvaro Flood M.D. 12/24/2024 3:19 PM
[2024-12-24] MEDS: SODIUM CHLORIDE 0.9% 500 ML IV ONE (15:25)
[2024-12-24 15:49] LABS: Hematocrit (blood only) 40.2 % (37.0-47.0); Hemoglobin 13.6 g/dl (12.0-16.0); Immature Granulocytes # (auto) 0.01 K/uL (0.01-0.20); Immature Granulocytes % (auto) 0.1 %; Mean Corpuscular Hemoglobin 30.3 pg (25.0-34.0); Mean Corpuscular Volume 89.5 fL (80.0-100.0); Platelet Count 97 K/uL (130-400); RDW Standard Deviation 61.1 fL (36.4-46.3); Red Blood Count 4.49 M/uL (4.20-5.40); White Blood Count 6.75 K/ul (4.8-10.8)
[2024-12-24 16:05] LABS: Alanine Aminotransferase 198.0 U/L (7-52); Alkaline Phosphatase 89.0 U/L (34-104); Anion Gap 10.0 (3-11); Bilirubin,Total 0.7 mg/dl (0.2-1.0); Blood Urea Nitrogen 20.0 mg/dl (6-23); Calcium 9.5 mg/dl (8.6-10.3); Carbon Dioxide 24.0 mmol/L (21-32); Chloride 103.0 mmol/L (98-107); Creatinine Clr Calc Pharmacy 50.2 ml/min; Glucose 100.0 mg/dl (70-99(Fasting)); Potassium 4.0 mmol/L (3.5-5.1); Sodium 137.0 mmol/L (136-145); Total Protein 7.1 gm/dl (6.0-8.3)
[2024-12-24 16:20] LABS: Thyroid Stimulating Hormone 26.641 uIu/ml (0.300-4.500)
[2024-12-24] MEDS: SODIUM CHLORIDE 0.9% 1,000 ML IV ONE (16:28)
[2024-12-24 17:34] LABS: Appearance Urine Clear (Clear); Bacteria Urine Automated None Seen (None Seen); Cast Urine Automated 0-2 /lpf (0-2); Epithelial Cell Urine Auto 0-2 /hpf (0-2); Glucose Urine UA Negative (Negative); RBC Urine Automated 0-2 /hpf (0-2); WBC Urine Automated 0-5 /hpf (0-5)
[2024-12-24] MEDS ORDERED: POLYETHYLENE (MIRALAX) 17 GM PACK PO PRN (18:48)
[2024-12-24] MEDS ORDERED: ONDANSETRON INJ 2 MG/ML 2 ML VIAL IV PRN ×2 (18:48→22:31)
[2024-12-24] MEDS ORDERED: ACETAMINOPHEN 325 MG TAB PO PRN ×2 (18:48→22:31)
--- NOTE | 2024-12-24 19:38 | History & Physical Report ---
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 Pt presented to ED with progressive weakness, fatigue and presyncopal symptoms. Pts initial lab work showed normal Hbg, WBC, electrolytes, urine, and chest x-ray. Pt's liver enzymes and TSH were elevated, however her bilirubin and free T4 were within normal limits. Pt's vitals show soft BPs with mild tachycardia. Pt received NS bolus in ED and pt was noting mild improvement. # Orthostatic hypotension Pt's vitals are currently stable after IVF bolus in ED. - Continue mIVF NS at 80mls x 1L - Repeat orthostatics in AM - PT/OT consult #elevated TSH Pt without history of thyroid pathology. Currently reporting symptoms of hypothyroidism with dry skin/nails, fatigue, recent hard stools. Has had mildly elevated TSH in the past but significantly elevated today at 26. 641 with low/normal free T4. - Start 25mcg levothyroxine in am - Recommend outpatient follow up for response and repeat lab #Transaminitis History of elevated liver enzymes with pervious chemotherapy treatments. Pt also noted to have hepatic steatosis on CT on 06/2024. Recent episode of nausea was resolved with one dose of Zofran at home. No current reports of abdominal pain or nausea. - Continue to trend with CMP in AM labs #Thrombocytopenia Recent intermittent low platelet noted over the last 2 months ranging from 136- 97. Pt notes frequent nose bleeds. She is taking Eliquis BID, but does not know exactly why she takes this med as she denies dx of a-fib for previous DVTs. 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 Pt reports she had recently been discharged from [facility] where she had been working on increasing her strength and mobility after microablation procedure and started on a new chemo drug, Pazoparnib on 12/16. On 12/20, pt began to note increased fatigue and decreased endurance for her usual activities. She states the fatigue and feeling of weakness has progressed. She now notes dizziness/lightheadedness and presyncope when she stands. She does not experience these symptoms in sitting or when laying down. She reports she started with a new symptoms of nausea on 12/23, which was improved with her home dose of Zofran. Pt called her oncologist office was advised to come to the ED for further evaluation. Pt states over the last 2 months she has also noted increased dry skin all over her body as well as peeling nails. This morning, pt had a hard bowel movement and noted scant amount of blood in stool. Pt denies chest pain, palpitations, SOB, cough, headache, abdominal pain, vomiting, melena, hematochezia, or changes in vision. Pt endorses chronic loose stools for the last 2 years, and intermittent numbness in her hands since a "knitting injury" a couple years ago. Pt is taking Eliquis BID, but denies a diagnoses hx of DVT or a-fib. Allergies Allergy/AdvReac Type Severity Reaction Status Date / Time No Known Allergies Allergy Unknown Verified 12/24/24 17:51 Home Medications Medication Instructions Recorded Confirmed Type cholecalciferol (vitamin D3) 25 25 mcg PO QAM 11/20/23 12/24/24 History mcg (1,000 unit) capsule cranberry concentrate-ascorbic 1 cap PO BID 03/16/24 12/24/24 History acid 4,200 mg-20 mg capsule acetaminophen 325 mg tablet 650 mg PO QID PRN Pain/Fever 07/23/24 12/24/24 History Lactobacillus rhamnosus GG 10 1 cap PO DAILY 08/12/24 12/24/24 History billion cell capsule (Culturelle) pttenpax-fid-uzncq 80 mcg-lutein 1 tab PO DAILY 08/12/24 12/24/24 History 166.7 mcg-herbal 66.7 mg chew tablet (Alive Premium Women's 50 Plus) apixaban 2.5 mg tablet (Eliquis) 2.5 mg PO BID 12/24/24 12/24/24 History ferrous sulfate 27 mg iron tablet 27 mg PO DAILY 12/24/24 12/24/24 History loratadine 10 mg tablet (Claritin) 10 mg PO DAILY 12/24/24 12/24/24 History metoprolol tartrate 50 mg tablet 50 mg PO BID 12/24/24 12/24/24 History ondansetron HCl 4 mg tablet 0 mg PO DIRECTED PRN 12/24/24 12/24/24 History NAUSEA/VOMITING pazopanib 200 mg tablet 200 mg PO DAILY 12/24/24 12/24/24 History Past Med/Surg History Problem List Elevated TSH (Acute) Hepatitis (Acute) Orthostatic hypotension (Acute) Hypomagnesemia Hypokalemia Chemotherapy adverse reaction Transaminitis (Acute) Elevated troponin (Acute) Thrombocytopenia (Acute) Sepsis (Acute) SIRS (systemic inflammatory response syndrome) ILD (interstitial lung disease) Allergic rhinitis with postnasal drip Chronic cough Upper airway cough syndrome Multiple pulmonary nodules Lymphedema Mass of left thigh Encounter for pre-operative examination Medical History Primary myxofibrosarcoma Thrombocytopenia Elevated transaminase level Lactic acidosis Leukocytosis Elevated troponin Osteopenia Upper airway cough syndrome Primary myxofibrosarcoma dx spring 2022, left thigh; has mets to lung, one nodule in left lobe and 2 more nodules now in site of previously removed sarcomas; has also had 5 rounds of xrt (july-september 2022, total 5 weeks of treatments) Multiple pulmonary nodules CARLA nodule was bx and proven metastatic sarcoma Lymphedema ILD (interstitial lung disease) 'ILD/pulmonary fibrosis' per pulm note 01/22/24: 'increased reticular markings on the periphery of bilateral lower lobes with early honeycombing. No traction bronchiectasis', autoimmune workup ordered and was negative; per 03/15/24 note: 'Given that the patient's functional status is good, I do not think there is the need to start any antifibrotic's right now. Will keep a close eye on TLC as well as DLCO and if there is any significant decline in them then Ofev or Esbriet could be thought of. This was relayed to the patient and she is agreeable with the plan" Chronic cough Allergic rhinitis with postnasal drip History of uterine fibroid no sx needed Osteoarthritis Migraine hx, no pain more visual disturbance/flashes of light Hyperlipidemia Surgical History Port-A-Cath in place (04/12/24) Insertion Access Port to Left Subclavian with Fluoroscopy(Left) - Reyes Moeller DO History of surgery 12/04/22 and 04/17/23, [facility], myxofibrosarcoma removed in left thigh muscle; 2 new nodules have now formed in same the spot Hx of cataract extraction right/left History of cholecystectomy [place] teeth removed H/O eye surgery RT/LEFT CORNEA "SCRAPING" SURGERY Family History Sister Breast cancer Cancer Pancreatic Other No family history of adverse response to anesthesia Social History Smoking Status: Never smoker Second Hand Exposure: Yes (hx); Do You Dip or Chew Tobacco: No; Hx Alcohol Use: No Hx Substance Use: No Preferred Language: Macedonian Communication Ability: Effective Visual Impairment: Partially Limited Hearing Ability: Normal Lock Maintenance Supervisor Required: No Beliefs That Will Affect Care: Buddhism Buddhism Beliefs: Prodestant marital status: Current Living Situation: Alone current occupational status: retired How many Children do You have: 1 Feels Safe at Home: Yes Diet: regular during the past year weight has: increased > 10 lbs Assistive Devices: None Review of Systems Review of Systems: As per HPI Physical Exam Physical Exam: Gen: NAD HENT: Normocephalic, atraumatic. External ear without deformities. Trachea midline, no thyromegaly Cardio: RRR, no murmurs or clicks. Mild non pitting edema noted at L>R ankle/foot. No JVD Resp: CTAB, Equal bilateral chest rise, no increased work of breathing GI: Non distended, soft, non tender, normoactive bowel sounds MSK: Moving all 4 extremities independently Skin: Dry, flaking skin on upper arms and ankles, peeling finger nails bilaterally, of normal skin tone, no rashes noted on exposed skin Neuro: A& O x 3, normal affect Results & Data Results & Data Vital Signs (Past 12 Hours) Vital Signs Temp Pulse Resp BP Pulse Ox O2 Del Method 12/24/24 15:05 96 H 12/24/24 14:48 36.9 C 88 17 108/78 98 Room Air Laboratory Results 12/24/24 12/24/24 Range/Units 17:22 15:25 WBC 6.75 (4.8-10.8) K/ul RBC 4.49 (4.20-5.40) M/uL Hgb 13.6 (12.0-16.0) g/dl Hct 40.2 (37.0-47.0) % MCV 89.5 (80.0-100.0) fL MCH 30.3 (25.0-34.0) pg MCHC 33.8 (32.0-36.0) g/dL RDW Std Deviation 61.1 H (36.4-46.3) fL RDW Coeff of Shavon 19.0 H (11.5-14.5) % Plt Count 97 L (130-400) K/uL MPV 8.9 L (9.4-12.4) fL Immature Gran % (Auto) 0.1 % Neut % (Auto) 50.3 % Lymph % (Auto) 36.0 % [place] % (Auto) 12.3 % Eos % (Auto) 0.7 % Baso % (Auto) 0.6 % Neut # (Auto) 3.39 (1.40-6.50) K/uL Lymph # (Auto) 2.43 (1.20-3.40) K/uL [place] # (Auto) 0.83 H (0.11-0.59) K/uL Eos # (Auto) 0.05 (0.00-0.50) K/uL Baso # (Auto) 0.04 (0.00-0.20) K/uL Immature Gran # (Auto) 0.01 (0.01-0.20) K/uL Sodium 137 (136-145) mmol/L Potassium 4.0 (3.5-5.1) mmol/L Chloride 103 (98-107) mmol/L Carbon Dioxide 24 (21-32) mmol/L Anion Gap 10 (3-11) BUN 20 (6-23) mg/dl Creatinine 0.76 (0.6-1.2) mg/dl Est Cr Clr Drug Dosing 50.2 ml/min eGFR 79.16 BUN/Creatinine Ratio 26.3 H (10-20) Glucose 100 H (70-99(Fasting)) mg/dl Calcium 9.5 (8.6-10.3) mg/dl Total Bilirubin 0.7 (0.2-1.0) mg/dl Direct Bilirubin 0.1 (0-0.2) mg/dl AST 95 H (13-39) U/L ALT 198 H (7-52) U/L Alkaline Phosphatase 89 (34-104) U/L Troponin I High Sens 10.3 (0-14) pg/ml Total Protein 7.1 (6.0-8.3) gm/dl Albumin 3.6 (3.4-5.0) gm/dl TSH 26.641 H (0.300-4.500) uIu/ml Free T4 0.65 (0.61-1.60) ng/dl Urine Color Yellow Urine Appearance Clear (Clear) Urine pH 6.5 (4.5-7.5) Ur Specific [place] 1.006 (1.000-1.030) Urine Protein Negative (Negative) Urine Glucose (UA) Negative (Negative) Urine Ketones Negative (Negative) Urine Blood Negative (Negative) Urine Nitrite Negative (Negative) Urine Bilirubin Negative (Negative) Urine Urobilinogen Negative (Negative) Ur Leukocyte Esterase Trace H (Negative) Urine WBC (Auto) 0-5 (0-5) /hpf Urine RBC (Auto) 0-2 (0-2) /hpf U Hyaline Cast (Auto) 0-2 (0-2) /lpf U Epithel Cells (Auto) 0-2 (0-2) /hpf Urine Bacteria (Auto) None Seen (None Seen) Urine Comment Diagnostic Findings Chest X-Ray 12/24/24 15:00 XR chest 1V portable CLINICAL HISTORY: weakness COMPARISON STUDY: 11/13/2024 FINDINGS: Stable chest port. Heart size and pulmonary vasculature are normal. No consolidation or pleural effusion seen. No pneumothorax. IMPRESSION: No acute findings. ACT 112: Negative or not required by law. Electronically signed by: Alvaro Flood M.D. 12/24/2024 3:19 PM Supervising Physician Co-Signing Physician Notes Patient seen and examined, chart reviewed, case discussed with Dr. Manzo and I agree with the assessment and plan as above. Patient with some dizziness/lighthead Found with elevated LFTs on labs. Happened in the past while on this chemotherapy agent Also reports generalized weakness and fatigue On exam she is resting comfortably, NAD Skin - no rash MMM, Neck supple +S1/S2, regular, no m/r/g Lungs - CTA Abd - soft, NT/ND Labs and images reviewed Assessment/plan -Monitor LFTs -Gentle IVF with repeat orthostatic vital signs -initiate low dose synthroid - elevated TSH=26, T4 on low end of normal -remainder as above Resident Activity Tracking Resident Involvement: Resident Care Provided Care Provided: [facility]
[2024-12-24] MEDS: METOPROLOL TARTRATE 50 MG TAB PO SCH (20:49)
[2024-12-24] MEDS: APIXABAN 2.5 MG TAB PO SCH (20:49)
--- NOTE | 2024-12-24 21:53 | Electrocardiogram Report ---
Test Reason : Blood Pressure : */* mmHG Vent. Rate : 63 BPM Atrial Rate : 63 BPM P-R Int : 116 ms QRS Dur : 74 ms QT Int : 408 ms P-R-T Axes : -22 -31 86 degrees QTcB Int : 417 ms Normal sinus rhythm Left axis deviation Nonspecific T wave abnormality Abnormal ECG When compared with ECG of 24-Dec-2024 14:33, (unconfirmed) QRS axis Shifted left Nonspecific T wave abnormality has replaced inverted T waves in Lateral leads Confirmed by Ruben Floyd ([id number]) on 12/24/2024 9:53:46 PM Referred By: REFERRED SELF Confirmed By: Ruben Floyd
[2024-12-24] MEDS ORDERED: MELATONIN 3 MG TAB PO PRN (22:31)
--- NOTE | 2024-12-24 22:49 | Billing Data ---
Date of Service December 24, 2024 Coding Level of Care Code 87604 INT INP/OBS CARE
[2024-12-24] MEDS: SODIUM CHLORIDE 0.9% 1,000 ML IV SCH (23:07)
[2024-12-25] MEDS: LEVOTHYROXINE SODIUM 25 MCG TABLET PO SCH (05:56)
[2024-12-25 08:35] LABS: Hematocrit (blood only) 36.0 % (37.0-47.0); Hemoglobin 12.2 g/dl (12.0-16.0); Immature Granulocytes # (auto) 0.02 K/uL (0.01-0.20); Immature Granulocytes % (auto) 0.3 %; Mean Corpuscular Hemoglobin 30.4 pg (25.0-34.0); Mean Corpuscular Volume 89.8 fL (80.0-100.0); Platelet Count 73 K/uL (130-400); RDW Standard Deviation 61.3 fL (36.4-46.3); Red Blood Count 4.01 M/uL (4.20-5.40); White Blood Count 7.24 K/ul (4.8-10.8)
[2024-12-25 08:52] LABS: Anion Gap 8.0 (3-11); Blood Urea Nitrogen 12.0 mg/dl (6-23); Calcium 7.9 mg/dl (8.6-10.3); Carbon Dioxide 24.0 mmol/L (21-32); Chloride 107.0 mmol/L (98-107); Creatinine Clr Calc Pharmacy 61.6 ml/min; Glucose 86.0 mg/dl (70-99(Fasting)); Magnesium 1.7 mg/dl (1.7-2.4); Potassium 3.8 mmol/L (3.5-5.1); Sodium 139.0 mmol/L (136-145)
[2024-12-25] MEDS ORDERED: MV MN FOLIC LUTEIN HERBAL PO SCH (09:00)
[2024-12-25] MEDS ORDERED: [UNRECOGNIZED DRUG - OTHER] PO SCH (09:00)
--- NOTE | 2024-12-25 09:03 | Billing Data ---
Date of Service December 24, [address] Please [address] bill by Dr. Broussard. Coding Level of Care Code 34870 INT INP/OBS CARE
[2024-12-25] MEDS: CHOLECALCIFEROL 25 MCG (1000 UNITS) TAB PO SCH (10:13)
[2024-12-25] MEDS: LORATADINE 10 MG TAB PO SCH (10:13)
--- NOTE | 2024-12-25 13:11 | Hospitalist Progress Note ---
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 Pt presented to ED with progressive weakness, fatigue and presyncopal symptoms. Pts initial lab work showed normal Hbg, WBC, electrolytes, urine, and chest x-ray. Pt's liver enzymes and TSH were elevated, however her bilirubin and free T4 were within normal limits. Pt's vitals show soft BPs with mild tachycardia. Pt received NS bolus in ED and pt was noting mild improvement. Orthostatic hypotension Pt's vitals are currently stable after IVF bolus in ED. - Continue mIVF NS at 80mls x 1L - Repeat orthostatics in AM: Lyin/78, Seated: 131/83, Standin/81; improved from orthostatics taken yesterday when systolic dropped 60 points from 180 to 120 lying down to standing - PT/OT consult placed - CM placed referral for rehab with [facility] elevated TSH Pt without history of thyroid pathology. Currently reporting symptoms of hypothyroidism with dry skin/nails, fatigue, recent hard stools. Has had mildly elevated TSH in the past but significantly elevated today at 26. 641 with low/normal free T4. - Start 25mcg levothyroxine in am - Recommend outpatient follow up for response and repeat lab Transaminitis History of elevated liver enzymes with pervious chemotherapy treatments. Pt also noted to have hepatic steatosis on CT on 06/2024. Recent episode of nausea was resolved with one dose of Zofran at home. No current reports of abdominal pain or nausea. - Continue to trend with CMP in AM labs Thrombocytopenia Recent intermittent low platelet noted over the last 2 months ranging from 136- 97. Pt notes frequent nose bleeds. - Continue to trend with CBC in AM labs Hx of DVT 6 months prior - Continue Eliquis 2.5mg BID - Consider d/c if platelets < 50 Dispo: med/tele Diet: regular DVT prophylaxis: Home Eliquis Code: Full Admission and Anticipated Discharge Date Admission Date: December 24, 2024 Supervising Physician Co-Signing Physician Notes Patient seen and examined, chart reviewed, case discussed with Dr. Manzo and I agree with the assessment and plan as above. Patient with some dizziness/lighthead Found with elevated LFTs on labs. Happened in the past while on this chemotherapy agent Also reports generalized weakness and fatigue On exam she is resting comfortably, NAD Skin - no rash MMM, Neck supple +S1/S2, regular, no m/r/g Lungs - CTA Abd - soft, NT/ND Labs and images reviewed Assessment/plan -orthostatic vitals are still positive. will continue IVF and monitor. -continue low dose synthroid - elevated TSH=26, T4 on low end of normal -remainder as above Subjective Alessia is seen this AM she reports that she is feeling better than the day prior but still has been getting dizzy when getting up and walking. Patient reports that this dizziness started this past Friday and progressively worsened, but she feels that this symptom has improved today. Patient has worked hard through rehab and has had long journey of 2 week stay at [facility], followed by 7 week stay at [facility] and finally home with home PT to help her regain her strength. Patient reports that she went from wheelchair bound, to using a walker, to back on her feet at home and had successful rehab through [facility] but is frustrated that her cancer continues to reoccur and that she feels weak with dizziness/lightheadedness when standing after her substantial amount of rehab. Patient feels that this weakness is exacerbated by her chemotherapy. Patient remains afebrile and hemodynamically stable. Physical Exam Physical Exam: General: patient resting comfortably, NAD, non-toxic in appearance, answers questions appropriately. Skin: warm, dry, intact HEENT: NC/AT, anicteric sclera, conjunctiva without injection, moist mucus membranes. Heart: +S1/S2, regular, no m/r/g Lungs: equal air entry bilaterally, no rales/rhonchi/wheezes Abd: +BS, soft, NT/ND Ext: warm, no clubbing/cyanosis or edema Neuro: nonfocal, speech intact, no facial droop, moving all extremities. Results & Data Results & Data Vital Signs (Past 12 Hours) Vital Signs Temp Pulse Pulse Resp BP BP Pulse Ox 12/25/24 10:58 36.7 C 60 18 147/78 H 97 12/25/24 07:53 62 12/25/24 07:17 36.6 C 65 18 151/67 H 96 12/25/24 03:43 37.2 C 82 20 107/66 95 O2 Del Method 12/25/24 10:58 Room Air 12/25/24 07:53 12/25/24 07:17 Room Air 12/25/24 03:43 Room Air Resident Activity Tracking Resident Involvement: Resident Care Provided Care Provided: Adult [facility] Medicine
--- NOTE | 2024-12-25 14:48 | Oncology Consultation ---
Date of Consultation December 25, 2024 Assessment & Plan (1) Primary myxofibrosarcoma: hold Votrient will stop all chemotherapy for now continue supportive care continue Eliquis as long as platelet count is more than 50,000/mcL Plan thank you for this interesting oncological consult. Oncology will continue to follow the patient make appropriate recommendations. History of Present Illness Reason for Consultation: Primary myxofibrosarcoma decreased oral intake thrombocytopenia recommendations for anticoagulation Attending Physician: Max Bustamante History of Present Illness 07/11/2022. Left thigh ultrasound due to localized mass. 8.2 x 3.3 x 5.4 cm hypoechoic mass in-like abnormality within the deep soft tissues, likely intramuscular, of the lateral left thigh at site of pain and swelling. This represents a mass and differential considerations include benign and malignant etiologies. MRI of the left thigh with and without contrast is recommended. 07/30/2022. MRI of the left thigh. Avidly enhancing 8.7 cm intramuscular mass of the vastus lateralis. Findings are suggestive of a nonspecific myxomatous lesion which includes benign and malignant etiologies. Surgical consultation recommended. No osseous involvement. 08/19/2022. Ultrasound-guided needle biopsy of left thigh mass. Pathology reveals positive for malignant cells, consistent with sarcoma. Seen on fine- needle aspiration. On core examination this is consistent with a myxofibrosarcoma. 08/26/2022. Chest CT. Less than 5 mm nodules in the lingula and left lower lobe, more likely benign. Otherwise no evidence of metastatic disease in the chest. 10/29/2022. Status post completion of radiation therapy. She received 5000 cGy. 11/07/2022. MRI of the left femur. 1. There is increasing size and heterogeneity of an avidly enhancing mass lesion centered in the left vastus lateralis muscle. This is consistent with the reported history of a sarcoma. 2. Mild surrounding infiltration and fluid is likely related to radiation treatment. 3. The lesion does not involve the underlying femur. 11/20/2022. CTA of the chest. Performed due to dyspnea and tachycardia. 1. There is no evidence of pulmonary embolus in the main, lobar, or segmental pulmonary arteries. 2. There is no airspace consolidation or pleural effusion. 3. An indeterminant 4 mm pulmonary nodule in the lingula is unchanged. 11/29/2022. Venous Doppler left lower extremity. Normal study, no evidence of deep or superficial vein thrombosis identified in the left common femoral, deep femoral, femoral popliteal, gastrocnemius, posterior tibial, peroneal, greater saphenous or small saphenous veins. 12/04/2022. Radical reexcision of left thigh myxofibrosarcoma sarcoma. Negative margins 03/13/2023. Chest CT. 1. There is no evidence of intrathoracic metastatic disease. 2. Low suspicion pulmonary nodules are unchanged. No new or enlarging pulmonary lesion is seen. 3. There is no airspace consolidation or pleural effusion. 03/13/2023. MRI left lower extremity. 1. Status post resection of the previously described avidly enhancing solid intramuscular mass of the lateral left thigh. Within the surgical bed, there is a peripherally enhancing 12 cm fluid collection suggestive of a seroma. 2. There is a new avidly enhancing 1.6 cm intramuscular lesion of the upper left thigh suggestive of a new site of disease. 3. Normal bone marrow signal. 03/28/2023. Ultrasound-guided biopsy. Path report reveals recurrent myxofibrosarcoma. 04/15/2023. Radical reexcision of recurrent sarcoma. Pathology report reveals recurrent myxofibrosarcoma, at least intermediate grade, grade 2-3, margins negative. This case was reviewed at tumor board. Recommendation for close follow-up. 02/09/2024, PET CT scan: 1. FDG PET/CT demonstrating intensely hypermetabolic and growing; currently 1.0 x 0.7 cm left upper lobe pulmonary nodule, highly suspicious for pulmonary metastatic is from progressive disease. Much less likely etiology is differential diagnosis include primary lung tumor and active inflammatory nodule 2. Multiple hypodense lesions in the previously treated surgery and radiation left thigh demonstrating moderate to intense metabolic activity 02/11/2024, left thigh core biopsy: Recurrent myxofibrosarcoma, intermediate grade 03/30/2024: Left ventricle EF of 60-65%. Normal left ventricular wall function. Adriamycin cycle 1 day 1: 04/14/2024 Adriamycin cycle 2-day 1: 05/05/2024 Adriamycin cycle 3-day 1: 06/03/2023 Femur MRI, 06/23/2024: IMPRESSION: Interval enlargement of 2 enhancing foci concerning for recurrence in this patient status post sarcoma excision. Stable postsurgical changes with a fluid collection which may represent a hematoma/seroma. CT chest, 06/30/2024: 1. Mild stable subpleural reticulation with the lung bases in lingula. Consistent with mild pulmonary fibrosis 2. Decrease in size of the nodule within the left upper lobe compared to prior study 3. Other nodules are stable 4. Other chronic/incidental findings are unchanged Gemcitabine docetaxel, cycle 1 day 1: 07/07/2024 Gemcitabine docetaxel, cycle 2-day 1: 07/28/[address] scan, 08/11/2024 IMPRESSION: 1. Two FDG avid intramuscular lesions within the left vastus medialis and rectus femoris muscles, increased in size since PET/CT of February 09, 2024 and stable to slightly increased in size since MRI of June 23, 2024. These are consistent with recurrent tumor. 2. No FDG avid metastatic disease. 3. Left lung nodules on CT of January 20, 2024 no longer identified consistent with a treatment response. No new pulmonary nodules although evaluation is suboptimal given respiratory motion inherent to PET/CT imaging. 4. Diffuse skeletal FDG uptake which is likely treatment related. The patient is a very pleasant 78-year-old woman who comes to the medical oncology clinic for recommendations regarding previously identified my xofibrosarcoma. This was first noticed in July 2022, underwent radiation with Dr. Rutherford August to September 2022 followed by complete resection in November 2022. She then had a focal recurrence in March 2023, was resected in April 2023. Now she has a mass in the left thigh and metastatic left lung nodule confirmed with biopsy. Her case was discussed at sarcoma tumor board at [facility] and recommendation was 2 cycles of chemotherapy. Currently she is doing well, reports no fever or chills. Her appetite is good, she is not losing any weight. the patient is admitted in the hospital with poor oral intake, transaminitis. Medical oncology has been consulted to assist in management of this patient with metastatic sarcoma, currently on treatment with transaminitis and decreased oral intake. Allergies Allergy/AdvReac Type Severity Reaction Status Date / Time No Known Allergies Allergy Unknown Verified 12/24/24 17:51 Home Medications Medication Instructions Recorded Confirmed Type cholecalciferol (vitamin D3) 25 25 mcg PO QAM 11/20/23 12/24/24 History mcg (1,000 unit) capsule cranberry concentrate-ascorbic 1 cap PO BID 03/16/24 12/24/24 History acid 4,200 mg-20 mg capsule acetaminophen 325 mg tablet 650 mg PO QID PRN Pain/Fever 07/23/24 12/24/24 History Lactobacillus rhamnosus GG 10 1 cap PO DAILY 08/12/24 12/24/24 History billion cell capsule (Culturelle) [id number] 80 mcg-lutein 1 tab PO DAILY 08/12/24 12/24/24 History 166.7 mcg-herbal 66.7 mg chew tablet (Alive Premium Women's 50 Plus) apixaban 2.5 mg tablet (Eliquis) 2.5 mg PO BID 12/24/24 12/24/24 History ferrous sulfate 27 mg iron tablet 27 mg PO DAILY 12/24/24 12/24/24 History loratadine 10 mg tablet (Claritin) 10 mg PO DAILY 12/24/24 12/24/24 History metoprolol tartrate 50 mg tablet 50 mg PO BID 12/24/24 12/24/24 History ondansetron HCl 4 mg tablet 0 mg PO DIRECTED PRN 12/24/24 12/24/24 History NAUSEA/VOMITING pazopanib 200 mg tablet 200 mg PO DAILY 12/24/24 12/24/24 History Patient History Medical History Primary myxofibrosarcoma Thrombocytopenia Elevated transaminase level Lactic acidosis Leukocytosis Elevated troponin Osteopenia Upper airway cough syndrome Primary myxofibrosarcoma dx spring 2022, left thigh; has mets to lung, one nodule in left lobe and 2 more nodules now in site of previously removed sarcomas; has also had 5 rounds of xrt (july-september 2022, total 5 weeks of treatments) Multiple pulmonary nodules CARLA nodule was bx and proven metastatic sarcoma Lymphedema ILD (interstitial lung disease) 'ILD/pulmonary fibrosis' per pulm note 01/22/24: 'increased reticular markings on the periphery of bilateral lower lobes with early honeycombing. No traction bronchiectasis', autoimmune workup ordered and was negative; per 03/15/24 note: 'Given that the patient's functional status is good, I do not think there is the need to start any antifibrotic's right now. Will keep a close eye on TLC as well as DLCO and if there is any significant decline in them then Ofev or Esbriet could be thought of. This was relayed to the patient and she is agreeable with the plan" Chronic cough Allergic rhinitis with postnasal drip History of uterine fibroid no sx needed Osteoarthritis Migraine hx, no pain more visual disturbance/flashes of light Hyperlipidemia Surgical History Port-A-Cath in place (04/12/24) Insertion Access Port to Left Subclavian with Fluoroscopy(Left) - Reyes Moeller DO History of surgery 12/04/22 and 04/17/23, [facility], myxofibrosarcoma removed in left thigh muscle; 2 new nodules have now formed in same the spot Hx of cataract extraction right/left History of cholecystectomy Collison teeth removed H/O eye surgery RT/LEFT CORNEA "SCRAPING" SURGERY Family History Sister Breast cancer Cancer Pancreatic Other No family history of adverse response to anesthesia Social History Smoking Status: Never smoker Second Hand Exposure: Yes (hx); Do You Dip or Chew Tobacco: No; Hx Alcohol Use: Yes Alcohol type: wine Alcohol Intake Frequency: Monthly or Less Hx Substance Use: No Preferred Language: Slovenian Communication Ability: Effective Visual Impairment: Partially Limited Hearing Ability: Normal Special Needs Tutor Required: No Beliefs That Will Affect Care: Orthodoxy Orthodoxy Beliefs: Roman Catholic marital status: Current Living Situation: Alone current occupational status: retired How many Children do You have: 1 Other Information That Helps Us Care for You: No Feels Safe at Home: Yes Safety Concerns: Feels Safe At This Time Diet: regular during the past year weight has: increased > 10 lbs Assistive Devices: Walker Review of Systems Review of Systems: Decreased decreased oral intake, poor overall appetite Constitutional: as per Subjective / HPI Eyes: as per Subjective / HPI Ear, Nose, Mouth, Throat: as per Subjective / HPI Respiratory: as per Subjective / HPI Cardiovascular: as per Subjective / HPI Gastrointestinal: as per Subjective / HPI Genitourinary: as per Subjective / HPI Musculoskeletal: as per Subjective / HPI Integumentary: as per Subjective / HPI Neurologic: as per Subjective / HPI Psychiatric: as per Subjective / HPI Endocrine: as per Subjective / HPI Hematologic / Lymphatic: as per Subjective / HPI Physical Exam Constitutional: WD/WN, vitals as above Eyes: PERRL, conjunctivae normal, anicteric sclerae ENMT: external ear and nose normal, oropharynx normal Neck: trachea midline, no thyromegaly Respiratory: normal respiratory effort, lungs clear to auscultation Cardiovascular: RRR, no murmur, no edema Gastrointestinal (Abdomen): normal bowel sounds, soft, nontender, no hepatosplenomegaly Musculoskeletal: no cyanosis or clubbing, extremities motor strength 5/5 Skin: no rashes, warm and dry Neurologic: patellar DTR's 2+ bilat, sensation intact Psychiatric: A+Ox3, euthymic affect Genitourinary: no vaginal lesions, no adnexal mass Results & Data Vital Signs (Past 12 Hours) Vital Signs Temp Pulse Pulse Resp BP BP Pulse Ox 12/25/24 10:58 36.7 C 60 18 147/78 H 97 12/25/24 07:53 62 12/25/24 07:17 36.6 C 65 18 151/67 H 96 12/25/24 03:43 37.2 C 82 20 107/66 95 O2 Del Method 12/25/24 10:58 Room Air 12/25/24 07:53 12/25/24 07:17 Room Air 12/25/24 03:43 Room Air
[2024-12-26 07:07] LABS: Hematocrit (blood only) 37.3 % (37.0-47.0); Hemoglobin 12.8 g/dl (12.0-16.0); Immature Granulocytes # (auto) 0.01 K/uL (0.01-0.20); Immature Granulocytes % (auto) 0.1 %; Mean Corpuscular Hemoglobin 31.3 pg (25.0-34.0); Mean Corpuscular Volume 91.2 fL (80.0-100.0); Platelet Count 73 K/uL (130-400); RDW Standard Deviation 62.0 fL (36.4-46.3); Red Blood Count 4.09 M/uL (4.20-5.40); White Blood Count 6.75 K/ul (4.8-10.8)
[2024-12-26 07:25] VITALS: RESP 18
[2024-12-26 07:41] LABS: Alanine Aminotransferase 162.0 U/L (7-52); Albumin Globulin Ratio 1.2 (0.9-2); Alkaline Phosphatase 81.0 U/L (34-104); Anion Gap 8.0 (3-11); Bilirubin,Total 0.6 mg/dl (0.2-1.0); Blood Urea Nitrogen 12.0 mg/dl (6-23); Calcium 8.8 mg/dl (8.6-10.3); Carbon Dioxide 26.0 mmol/L (21-32); Chloride 105.0 mmol/L (98-107); Creatinine Clr Calc Pharmacy 55.9 ml/min; Globulin 2.8 gm/dl (2.5-4.0); Glucose 83.0 mg/dl (70-99(Fasting)); Potassium 4.0 mmol/L (3.5-5.1); Sodium 139.0 mmol/L (136-145); Total Protein 6.2 gm/dl (6.0-8.3)
[2024-12-26 11:28] VITALS: TEMP 97.5; O2SAT 96
--- NOTE | 2024-12-26 14:46 | Discharge Summary ---
Date of Service December 26, 2024 Admission HPI Per Admitting Provider Pt is an 79 yo female with PMH of lymphedema, OA, primary myxofibrosarcoma of left thigh s/p surgical and microablation and on her 3rd chemo drug. Pt reports she had recently been discharged from [facility] where she had been working on increasing her strength and mobility after microablation procedure and started on a new chemo drug, Pazoparnib on 12/16. On 12/20, pt began to note increased fatigue and decreased endurance for her usual activities. She states the fatigue and feeling of weakness has progressed. She now notes dizziness/lightheadedness and presyncope when she stands. She does not experience these symptoms in sitting or when laying down. She reports she started with a new symptoms of nausea on 12/23, which was improved with her home dose of Zofran. Pt called her oncologist office was advised to come to the ED for further evaluation. Pt states over the last 2 months she has also noted increased dry skin all over her body as well as peeling nails. This morning, pt had a hard bowel movement and noted scant amount of blood in stool. Pt denies chest pain, palpitations, SOB, cough, headache, abdominal pain, vomiting, melena, hematochezia, or changes in vision. Pt endorses chronic loose stools for the last 2 years, and intermittent numbness in her hands since a "knitting injury" a couple years ago. Pt is taking Eliquis BID, but denies a diagnoses hx of DVT or a-fib. Admission Exam Per Admitting Provider Gen: NAD HENT: Normocephalic, atraumatic. External ear without deformities. Trachea midline, no thyromegaly Cardio: RRR, no murmurs or clicks. Mild non pitting edema noted at L>R ankle/foot. No JVD Resp: CTAB, Equal bilateral chest rise, no increased work of breathing GI: Non distended, soft, non tender, normoactive bowel sounds MSK: Moving all 4 extremities independently Skin: Dry, flaking skin on upper arms and ankles, peeling finger nails bilaterally, of normal skin tone, no rashes noted on exposed skin Neuro: A& O x 3, normal affect Principal Diagnosis Orthostatic hypotension Discharge Exam General: patient resting comfortably, NAD, non-toxic in appearance, answers questions appropriately. Skin: warm, dry, intact HEENT: NC/AT, anicteric sclera, conjunctiva without injection, moist mucus membranes. Heart: +S1/S2, regular, no m/r/g Lungs: equal air entry bilaterally, no rales/rhonchi/wheezes Abd: +BS, soft, NT/ND Ext: warm, no clubbing/cyanosis or edema Neuro: nonfocal, speech intact, no facial droop, moving all extremities. Discharge Data Allergies Allergy/AdvReac Type Severity Reaction Status Date / Time No Known Allergies Allergy Unknown Verified 12/24/24 17:51 Consultations 12/24/24 18:09 ED Decision to Admit Stat Hospital Course (1) Orthostatic hypotension: (2) Elevated TSH: (3) Transaminitis: (4) Thrombocytopenia: Plan Pt is an 79 yo female with PMH of lymphedema, OA, primary myxofibrosarcoma of left thigh s/p surgical and microablation and on her 3rd chemo drug. Pt presented to ED with progressive weakness, fatigue and presyncopal symptoms. Pts initial lab work showed normal Hbg, WBC, electrolytes, urine, and chest x-ray. Pt's liver enzymes and TSH were elevated, however her bilirubin and free T4 were within normal limits. Pt's vitals show soft BPs with mild tachycardia. Pt received NS bolus in ED and pt was noting mild improvement. Orthostatic hypotension Pt's vitals are currently stable after IVF bolus in ED. - Continue mIVF NS at 80mls x 1L - Repeat orthostatics in AM: Lyin/78, Seated: 131/83, Standin/81; improved from orthostatics taken yesterday when systolic dropped 60 points from 180 to 120 lying down to standing. 20 points systolic dropped this AM much improved, with less dizziness/lightheadedness and much improved compared to earlier in the week - placed referral for rehab with [facility] - plan to transfer for acute care at [facility] today - May require Midodrine if BP drops and is symptomatic, as symptoms and orthostatics have been imporving here at [facility], it was not necessary to implement at this time. elevated TSH Pt without history of thyroid pathology. Currently reporting symptoms of hypothyroidism with dry skin/nails, fatigue, recent hard stools. Has had mildly elevated TSH in the past but significantly elevated today at 26. 641 with low/normal free T4. - Start 25mcg levothyroxine in am - Recommend outpatient follow up for response and repeat lab Transaminitis History of elevated liver enzymes with pervious chemotherapy treatments. Pt also noted to have hepatic steatosis on CT on 06/2024. Recent episode of nausea was resolved with one dose of Zofran at home. No current reports of abdominal pain or nausea. Thrombocytopenia Recent intermittent low platelet noted over the last 2 months ranging from 136- 97. Pt notes frequent nose bleeds. - Plt: stable at 73 Hx of DVT 6 months prior - Continue Eliquis 2.5mg BID - Consider d/c if platelets < 50 Dispo: med/tele Diet: regular DVT prophylaxis: Home Eliquis Code: Full Total Time Total Time Spent Total Time Spent (In Minutes): See attending attestation Discharge Plan Discharge Items Patient Disposition: Transfer Inpatient Rehab Fac Reason For Visit: ORTHOSTASIS/ FATIGUE Discharge Diagnosis: Orthostatic Hypotension Condition on Discharge: Fair Activity: Per Instructions section Non-emergency contact: Primary Care Provider and Oncologist Call non-emergency contact if: your symptoms worsen and your pain is not controlled Follow-up/Referrals: Criselda Guzman [Primary Care Provider] - Diet: Regular Addtl Attending Provider Instructions: You were admitted to the hospital for orthostatic hypotension. You were treated with fluids, PT/OT assessments and orthostatics to monitor your blood pressure while lying down, seated, and standing. You received fluids and have begun to increase your food and fluid intake and it will be important to continue this to continue improvements with rehab and nutrition. Now that you are off of your last chemotherapy medication, I expect your orthostatic hypotension or drops in blood pressure when rising to improve, and we can see that these levels did improve when checking orthostatics this morning. Your BP did drop about 20 point this AM and is still considered orthostatic hypotension, but this is very improved from the 60 point drop we witnessed the day of admit. You have been making improvements every day and the advice I can give you is to continue eating and drinking well even when you feel that you don't have an appetite, this will help you push yourself to regain your strength when working with PT at [facility]. Lastly, the medication we discussed potentially using is called Midodrine, and this can be used to increase your BP. As we discussed this is not somthing to use long-term and should only be used while at [facility] if your BPs continue to significantly drop while standing, and you also are getting increasingly dizzy, lightheaded, and feel that you may fall. We held off on initiating this medication while you were here in the hospital because your numbers were improving as well as your symptoms. It was a pleasure taking care of you during this hospital stay and I applaud your determination with regaining strength and working with rehab on a consistent basis. A discharge summary will be sent to your primary care physician to ensure co ntinuity of care. Please bring this discharge summary with you to your next office appointment so that your provider can review it at that time. Follow-up appointments: Make a follow-up appointment with your PCP within the next week. It is very important that you follow up with them shortly after discharge from the hospital. Medications: Your medication list has been reviewed and reconciled upon discharge to ensure accuracy and continuity of care. An updated list of all your medications is included with your hospital discharge paperwork. Please review this list closely, and make note of any changes. Take your medications as instructed; do not skip a dose of your medicines. Make sure all of your doctors know every medicine you are taking (including [id number] medicines, vitamins, and supplements). Call your primary care provider before taking any new medicines (including [id number] medicines, vitamins, and supplements), because some of these may interact with your current medications, or may make your symptoms worse. Tell your primary care provider if you cannot afford your medications. CONTACT YOUR PRIMARY CARE PROVIDER if you experience any of the following: Difficulty following your treatment plan, or difficulty taking medications CALL 911 OR GO TO THE EMERGENCY DEPARTMENT if you experience any of the following: Sudden, severe abdominal pain or nausea/vomiting Severe chest pain, or chest pain that radiates (moves) to your jaw or arm Sudden, severe shortness of breath or difficulty breathing Thank you for allowing us to participate in your care. Pending Studies at Discharge: No Stand-Alone Forms: My [facility] Skilled Items Patient informed of condition?: Yes DNR: No Discharge Level of Care: Acute rehab Communicable Disease: No Discharge Prognosis: Improving Lines: None Urinary Catheter: No Medications and DC Order Prescriptions: Continued cholecalciferol (vitamin D3) 25 mcg (1,000 unit) capsule 25 mcg PO QAM cranberry conc-ascorbic acid 4,200-20 mg capsule 1 cap PO BID ondansetron HCl 4 mg Tablet 0 mg PO DIRECTED PRN (Reason: NAUSEA/VOMITING) Rx Instructions: PT UNSURE OF STRENGTH, UNABLE TO VERIFY metoprolol tartrate 50 mg tablet 50 mg PO BID loratadine [Claritin] 10 mg Tablet 10 mg PO DAILY ferrous sulfate 27 mg iron Tablet 27 mg PO DAILY pazopanib 200 mg tablet 200 mg PO DAILY Rx Instructions: PER PT " TOLD HER TO STOP, 12/24/24". Eliquis 2.5 mg tablet 2.5 mg PO BID acetaminophen 325 mg Tablet 650 mg PO QID PRN (Reason: Pain/Fever) Alive Premium Women's 50 Plus 80 mcg-166.7 mcg-66.7 mg Tablet,Chewable 1 tab PO DAILY Culturelle 10 billion cell Capsule 1 cap PO DAILY Discharge Orders: Discharge Order (Routine); Ordered 12/26/24 Ordered By: Moe Farley Admission Data Admit Date/Time: 12/24/24 19:29 Attending Provider: Max Bustamante Admit Provider: Bouchra Manzo Primary Care Provider: Criselda Guzman Other Providers: Carlos Mon Other Interventions: Discharge Summary Assessment (RN) Last Done: 12/26/24 15:14 Supervising Physician Co-Signing Physician Notes Patient seen and examined, chart reviewed, case discussed with Dr. Manzo and I agree with the assessment and plan as above. Patient with some dizziness/lighthead Found with elevated LFTs on labs. Happened in the past while on this chemotherapy agent Also reports generalized weakness and fatigue On exam she is resting comfortably, NAD Skin - no rash MMM, Neck supple +S1/S2, regular, no m/r/g Lungs - CTA Abd - soft, NT/ND Labs and images reviewed Assessment/plan -orthostatic vitals improved with IVF -continue low dose synthroid - elevated TSH=26, T4 on low end of normal -will discharge Resident Activity Tracking Resident Involvement: Resident Care Provided Care Provided: Adult Hospital Medicine
[2024-12-26] MEDS ORDERED: HEPARIN 100 UNIT/ML 5ML FLUSH ONE (15:06)
[2024-12-26 15:15] VITALS: BP 145/102; PULSE 65
--- NOTE | 2024-12-30 23:14 | Billing Data ---
Date of Service December 25, 2024 Coding Level of Care Code 91103 SUB INP/OBS CARE MIN
--- NOTE | 2024-12-31 23:01 | Billing Data ---
Date of Service December 26, 2024 Coding Level of Care Code 73398 INP/OBS DISCH >30 MIN Time Spent (min) 35
== END 2024-12-26 15:30 | DRG 312 ==
LOC: ED 14:45 → 2W 19:29